=== PATIENT | male | born 1935 | race Caucasian/White ===

== ENCOUNTER 2018-01-15 11:50 | Emergency (ER) | payer MEDICARE, BC ==
[~2018-01-15] VITALS: Ht 177.8 cm; Wt 77.1 kg
[~2018-01-15 11:50] MED LIST: ASPIRIN EC81 MG PO; ATENOLOL25 MG PO; CLOBETASOL PROP15 G1 TP; HYDROCHLOROTHIA25 MG PO; HYDROCODON-ACE1 EA11 PO; OMEPRAZOLE20 MG PO; SIMVASTATIN20 MG PO
[2018-01-15] MEDS ORDERED: ELIQUIS2.5 MG PO (15:39)
[2018-01-15] MEDS ORDERED: ELIQUIS5 MG PO (15:41)
== END 2018-01-15 16:59 | disposition home or self-care (01) ==
LOC: ED 11:50
DX: I82.402 Acute embolism and thrombosis of unspecified deep veins of left lower extremity (principal); I10 Essential (primary) hypertension; F17.200 Nicotine dependence, unspecified, uncomplicated; K21.9 Gastro-esophageal reflux disease without esophagitis; Z79.899 Other long term (current) drug therapy
CPT/HCPCS: 36415; 80048; 85025; 93971; 99284

== ENCOUNTER 2020-10-04 10:45 | Inpatient (IN) | payer MEDICARE, BC ==
[~2020-10-04] VITALS: Ht 177.8 cm; Wt 83.5 kg
[~2020-10-04 10:45] MED LIST changes: -ATENOLOL25 MG PO; +ATENOLOL50 MG PO; +ELIQUIS2.5 MG PO; +ELIQUIS5 MG PO; -SIMVASTATIN20 MG PO; +SIMVASTATIN40 MG PO
--- NOTE | 2020-10-04 16:00 | NUR ---
PATIENT ARRIVED TO THE CCU ROOM 128. PATIENT STOOD AND TRANSFERED TO THE BED ON HIS OWN. PATIENT ASSESSMENT COMPELTED. PATIENT BREATH SOUNDS CLEAR. PATIENT REPORTS HAVING SOME CONGESTION AT THIS TIME. NO SOB, COUGH, OR SORE THROAT. PATIENTS COVID TEST IS NEGATIVE. PATIENT DENIES PAIN AT THIS TIME. BOWEL TONES ACTIVE. PATIENT HAS MULTIPLE LITTLE SCABS PRESENT. PATIENT IS NORMALLY INDEPENDENT AT HOME. PROVIDED PATIENT WITH WATER AND CLEAR TRAY ORDERED. WILL CONTINUE TO CLOSELY MONITOR.
--- NOTE | 2020-10-04 18:00 | NUR ---
MD FUCHS IN TO SEE PATIENT. PATIENTS SON STOPPED BY AND DROPPED OFF PATIENTS GLASSES AND HEARING AID BATTERIES. PATIENT FINISHED A CLEAR LIQUID TRAY. PATIENT DENEIS ANY OTHER NEEDS AT THIS TIME. WILL CONTINUE TO CLOSELY MONITOR.
--- NOTE | 2020-10-04 19:29 | NUR ---
pt used urinal at bedside, this SIFTING OPERATOR went to check on him and was leaning to his right side "I cant keep my balance" I held pt up while he was sitting on the bedside, asking if he was able to feel the right side of his body, pt states "Yes i feel everything, im not numb" ZECHARIAH Swift and ZECHARIAH Walls notified.
--- NOTE | 2020-10-04 19:33 | NUR ---
PT STATES HE IS FEELING CHILLED, CANT GET WARM. TYLENOL GIVEN FOR GENERAL COMFORT.
--- NOTE | 2020-10-04 20:15 | NUR ---
ASSESSMENT DONE, PT IS FEELING BETTER AFTER TYLENOL. WANTING TO TRY TO SLEEP FOR THE NIGHT.
--- NOTE | 2020-10-04 21:32 | EKG ---
[facility] [address] [facility] [place] [address] Signed Sinus tachycardia Right bundle branch block Left anterior fascicular block Bifascicular block Possible Lateral infarct , age undetermined Abnormal ECG No previous ECGs available Confirmed by SAMUEL HUTCHISON MD ([id number]) on 10/04/2020 9:32:48 PM Electronically Signed By: SAMUEL HUTCHISON MD 10/04/202131 PATIENT NAME: KATHIEFRANK KRISTAL Electrocardiogram DATE OF : 31 PHYSICIAN: SAMUEL HUTCHISON MD REPORT #: [id number] REPORT IS CONFIDENTIAL AND NOT TO BE RELEASED WITHOUT AUTHORIZATION
--- NOTE | 2020-10-04 23:15 | NUR ---
DR HUTCHISON CALLED, UPDATED REGARDING PAUSES IN RHTHYM ON CARDIA MONITOR, CURRENT VS AND PT STATUS. WILL CONT TO MONITOR.
--- NOTE | 2020-10-05 00:45 | NUR ---
PT CALLS FOR ASSISTANCE TO GET UP TO VOID. VOIDED 400ML THEN HELPED REPOSITION IN BED, ASSESSMENT DONE. PT DENIES PAIN OR FURTHER NEEDS.
--- NOTE | 2020-10-05 03:08 | NUR ---
PT RESTING, EYES CLOSED, RESP EVEN UNLABORED AND HR 60.
--- NOTE | 2020-10-05 05:20 | NUR ---
LAB IN TO DRAW, ASSESSMENT DONE, PT DENIES PAIN, DOES C/O HAVING "CHILLS".
--- NOTE | 2020-10-05 06:21 | CONS ---
[facility] [address] [place], [place] [address] Signed DATE OF CONSULTATION: 10/04/2020 CHIEF COMPLAINT: Right upper quadrant abdominal pain. 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 His son, Thiago, now runs the shop. I have known the family for many years. Frank still lives in an apartment at the shop and drives himself around town and so forth. He is known to have cholelithiasis. He developed right upper quadrant abdominal pain earlier today with a feeling a gas and then some coldness and shivering. He came to emergency room for evaluation. In the emergency room, his white count was normal, but his liver function tests were elevated along with the lactic acid. Ultrasound showed what appears to be a small stone lodged in the neck of the gallbladder. The gallbladder wall slightly thick at 3.7 mm, but the common bile duct is a little bit dilated at 10 mm. There is no pericholecystic fluid. The liver was unremarkable. I was asked to admit him as a General Surgeon on-call. I did ask our Internal Medicine Service to come see him as well, done an excellent job seeing him earlier today. He has been given Zosyn and Flagyl along with some narcotic, I think overall he is feeling much better. PAST MEDICAL HISTORY: Hypertension, hypercholesterolemia, benign hematuria, gastroesophageal reflux disease. He is hard of hearing. 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 PAST SURGICAL HISTORY: Includes prostate in hernias x2. SOCIAL HISTORY: Still smokes. He does not drink. His son is, Thiago, at [phone]. He lives alone in an apartment at the shop and still drives himself around town, he is quite independent. He goes to the [facility] in [facility] for his medical care and his pharmacy. 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 FAMILY HISTORY: Mother had a cerebral hemorrhage and for unknown reasons dad day after the , and his mom was only in her late 60s. REVIEW OF SYSTEMS: He had 10 systems reviewed. There were no new issues uncovered. ALLERGIES: Electronically Signed By: ETHAN FAUSTIN MD 10/05/20 0621 PATIENT NAME: FRANK VÁZQUEZ CONSULTATION DATE OF : 31 REPORT #: [id number] PHYSICIAN: ETHAN FAUSTIN MD PCP: NO PRIMARY CARE PHYSICIAN REPORT IS CONFIDENTIAL AND NOT TO BE RELEASED WITHOUT AUTHORIZATION [facility] [address] [place], [place] [address] Signed None. MEDICATIONS: Eliquis, , clobetasol, hydrochlorothiazide, Prilosec, and simvastatin. PHYSICAL EXAMINATION: VITAL SIGNS: Blood pressure 103/54, heart rate 80, respiratory rate 14, temperature is 99.3, and 96% on room air. He is 5 feet 10 inches, 83 kg. GENERAL: Frank is an 85-year-old gentleman, who is sitting supine, semi-recumbent in his ICU bed, watching TV. He does not appear systemically ill or toxic. LUNGS: Generally clear to auscultation bilaterally. HEART: Regular rate and rhythm without murmur. ABDOMEN: Soft, flat, and currently nontender after narcotics, although he points up underneath the right rib cage. LABORATORY DATA: His white blood count 5.4, hemoglobin 15, neutrophils 86, BUN 17, creatinine 1.25, glucose 124. COVID was negative. Urinalysis showed some bilirubin. Lactic acid was 4.2, but the repeat 2.2. Total bilirubin is 3.1, AST 160, ALT 84, his alkaline phosphatase is 99. His albumin is 4.3, lipase 37. His blood cultures are pending and a repeat echocardiogram is pending. Back in 2007, his left ventricular ejection fraction of 55% or so. RADIOGRAPHIC STUDIES: Ultrasound is reviewed and the liver is unremarkable, the gallbladder wall is a little thick at 3.7 mm, there appears to be a very small stone 1.6 mm in diameter in the neck of the gallbladder, not sure if that is a typographical error and it could be 1.6 cm. The common bile duct slightly dilated at 10 mm. There is no pericholecystic fluid. ASSESSMENT AND PLAN: Frank is an 85-year-old gentleman, who presents with at least acute cholecystitis, cholelithiasis, on Eliquis. He has been admitted, IV fluids and antibiotics. After conferring with my Internists, we are going to wait 3 days until we can do his surgery off the Eliquis. In the meantime, he will be on clear liquids, and his antibiotics and pain control. I have reviewed this with Frank and his son, Thiago, as well as Dr. Shane and his nurse. Ethan Faustin MD ALB/MODL Electronically Signed By: ETHAN FAUSTIN MD 10/05/20 0621 PATIENT NAME: FRANK VÁZQUEZ CONSULTATION DATE OF : 31 REPORT #: [id number] PHYSICIAN: ETHAN FAUSTIN MD PCP: NO PRIMARY CARE PHYSICIAN REPORT IS CONFIDENTIAL AND NOT TO BE RELEASED WITHOUT AUTHORIZATION [address] [place], [place] [address] Signed /[id number] cc: Ethan Faustin MD [facility] Copies: ETHAN FAUSTIN MD ~ Electronically Signed By: ETHAN FAUSTIN MD 10/05/20 0621 PATIENT NAME: FRANK VÁZQUEZ CONSULTATION DATE OF : 31 REPORT #: [id number] PHYSICIAN: ETHAN FAUSTIN MD PCP: NO PRIMARY CARE PHYSICIAN REPORT IS CONFIDENTIAL AND NOT TO BE RELEASED WITHOUT AUTHORIZATION
--- NOTE | 2020-10-05 06:25 | NUR ---
DR FUCHS IN TO SEE PT.
--- NOTE | 2020-10-05 07:00 | NUR ---
ECHO BEING DONE.
--- NOTE | 2020-10-05 07:30 | NUR ---
PATIENT SHIFT REPORT RECIEVED FROM PUBLIC WORKS LABORER RN. PATIENT RESTING IN BED. PATIENT GETTING AN ECHO COMPLETED AT THIS TIME. WILL CONTINUE TO CLOSELY MONITOR.
[2020-10-05] MEDS ORDERED: ELIQUIS5 MG PO (08:02)
[2020-10-05] MEDS ORDERED: PROSCAR5 MG PO (08:04)
--- NOTE | 2020-10-05 08:19 | NUR ---
PATIENT UP IN THE BED EATING BREAKFAST. PATIENT ASSESSMENT COMPELTED. PATIENT BOWEL TONES ACTIVE. PATIENT DENIES ABD PAIN. BREATH SOUNDS CLEAR. PATIENT ON RA WITH SPO2 96%. ELECTROLYTES REPLACED PER ORDERS. FRESH WATER PROVIDED. VITALS STABLE. WILL CONTINUE TO CLOSELY MONITOR.
--- NOTE | 2020-10-05 09:45 | NUR ---
Spoke with Rg. 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 He has several steps to get to his apartment. He is active and exercises for 15 min each morning, then walks 1 mile. He denies needs, plans on dc to home. States he cannot remember his Dr's name at the [facility]. He is with kahdra Vanegas and provider is Austin Wynne.
--- NOTE | 2020-10-05 10:30 | NUR ---
PATIENT ASSISTED UP TO THE CHAIR THIS AM. BEDDING CHANGED. HUTCHISON IN TO SEE PATIENT THIS AM. ALL QUESTIONS ANSWERED. PATIENT WILL STAY HERE TODAY AND WILL MONITOR PATIENTS HR. PATIENT HAD SEVERAL PAUSES THROUGHOUT THE NIGHT. SEE NEW ORDERS FOR ELECTROLYTE REPLACEMENT. PATIENT HAS THE PRISCILA LLIGHT AND IS WATCHING TV AT THIS TIME.
--- NOTE | 2020-10-05 12:25 | NUR ---
PT ALERT, ORIENTED AND SITTING IN CHAIR WATCHING TV. PT MDNTIONED HE WAS FEELING BETTER, BUT HIS STONE IS STILL PRESENT. PT THANKED ME FOR VISITING, GAVE BLESSING. WILL FOLLOW NEEDED
--- NOTE | 2020-10-05 12:30 | NUR ---
PATIENT STOOD AT THE CHAIR TO USE THE URINAL. PATIENT SITTING BACK DOWN AT THIS TIME. PATIENTS VITALS DONE. PATIENT DENIES PAIN. PATIENT DENIES WANTING TO EAT AT THIS TIME. FRESH WATER PROVIDED. WARM BLANKET PROVIDED. WILL CONTINUE TO CLOSELY MONTIOR.
--- NOTE | 2020-10-05 13:00 | NUR ---
PATIENT SLEEPING IN THE CHAIR. WILL ALLOW PATIENT TO REST AT THIS TIME. CALL LIGHT IN REACH. WILL CONTINUE TO CLOSELY MONTIOR.
--- NOTE | 2020-10-05 13:39 | NUR ---
PT UP STANDING AT BEDSIDE, INCONTINENT OF URINE AND STOOL. IN TO SEE HIM. PT IS CONFUSED. STATES HE WOULD LIKE TO GO TO THE BED OVER AND OVER WHILE PUSHING THROUGH TO THE CHAIR AND CALLING IT THE BED. PT ASKS SAME QUESTIONS OVER AND OVER. REORIENTED. BLOOD SUGAR 116. BEFAST EXAM NEGATIVE FOR ANY DEFICITS. VITALS WITHIN NORMAL LIMITS EXCEPT TEMP OF 100.0. PT COMPLAINS OF SEVERE HEADACHE. MEDICATED WITH [address] HUTCHISON NOTIFIED. NO NEW ORDERS. WILL CONTINUE TO MONITOR.
--- NOTE | 2020-10-05 15:00 | NUR ---
PATIENT FEELING BETTER AT THSI TIME FROM FEVER INCIDENT EARLIER. PATIENT IS ALERT AND ORIENTED. PATIENT CONTINUES TO COMPLAIN OF A LITTLE HEADACHE. PATIENTS VITALS STABLE. TEMP IS DOWN TO 99.8. PATIENT HAS KICKED HIS BLANKETS OFF AND NO LONGER SHAKING AT THIS TIME. WILL CONTINUE TO CLOSELY MONITOR.
--- NOTE | 2020-10-05 17:00 | NUR ---
PATIENT SITTING IN BED. PATIENTS TEMP HAS RETURNED TO NORMAL. PATIENT REPORTS THAT HE FEELS BETTER AT THIS TIME. NO OTHER QUESTIONS AT THIS TIME. BED ALARM ON FOR PATIENTS SAFETY. WILL CONTINUE TO CLOSELY MONTIOR.
--- NOTE | 2020-10-05 18:30 | NUR ---
PATIENT UP TO THE BEDSIDE TO USE THE URINAL. PATIENT TOLERATED WELL. PATIENT HAS HAD NO EPISODES OF PAUSES TODAY. PATIENT HAD AN APPLE JUICE CLEAR ENSURE AND BROTH FOR DINNER ND TOLERATED WELL. PATIENT HAS REMAINED ALERT AND ORIENTED SINCE PRIOR CONFUSION EPISODE WITH FEVER EARLIER TODAY. WILL CONTINUE TO CLOSELY MONITOR.
--- NOTE | 2020-10-05 22:39 | NUR ---
PT CHILLED AND SHAKING. WARM BLANKETS GIVEN. ORAL TEMP CHECKED IS 98.3.
--- NOTE | 2020-10-06 00:20 | NUR ---
PT UP TO VOID, ASSESSMENT DONE. STATES HE IS NO LONGER FEELING CHILLED, NO LONGER SHAKING. NO REQUESTS. DENIES PAIN.
--- NOTE | 2020-10-06 02:15 | NUR ---
PT RESTING WITH EYES CLOSED, RESP EVEN AND UNLABORED. HR 69 SINUS RHYTHM.
--- NOTE | 2020-10-06 04:33 | NUR ---
PT WAS INC OF STOOL, DOWN TO TAKE A SHOWER IN 126, PT TOLERATED WELL. BACK TO HIS ROOM TO TRY TO GO BACK TO SLEEP. DENIES PAIN/NAUSEA.
--- NOTE | 2020-10-06 06:30 | NUR ---
PT HAS BEEN RESTING IN BED WITH RESP EVEN AND UNLABORED SINCE SHOWER. NO PAUSES NOTED IN HR THROUGH THE NIGHT, LAST NOTED WAS AROUND 2100. HAS CONTINUED TO DENY PAIN/NAUSEA.
--- NOTE | 2020-10-06 07:30 | NUR ---
PATIENT SHIFT REPORT RECIEVED FROM SPIDER ASSEMBLER RN. PATIENT RESTING IN BED. CALL LIGHT IN [facility]. PATIENT STANDS AT THE BEDSIDE ON HIS OWN TO USE URINAL. WILL CONTINUE TO CLOSELY MONITOR.
--- NOTE | 2020-10-06 09:00 | NUR ---
PATIENT UP TO THE CHAIR WITH THIS RN. PATIENT IS A STAND-BY TO MANAGE CORDS. PATIENT DENEIS ABD PAIN. BOWEL TONES ACTIVE. BREATH SOUNDS CLEAR. SPO2 100% ON RA. VITALS STABLE. PATIENT APPEARS TO BE LESS JAUNDICED TODAY THAN PRIOR DAY. MD FUCHS IN TO SEE PATIENT. WILL CONTINUE TO CLOSELY MONITOR.
--- NOTE | 2020-10-06 11:00 | NUR ---
PATIENT REMAINS UP IN THE CHAIR. PATIENT HAD AN APPLE JUICE ENSURE THIS AM, CHICKEN BROTH, AND SOME COFFEE AND TOLERATED WELL. MD FUCHS PLANS TO DO SURGERY TOMORROW AM. WILL REPEAT LABS TONIGHT TO MONITOR PLATLETS. SEE NEW ORDERS. MD PALACIOS IN TO SEE PATIENT. WILL CONTINUE TO CHRISTOPH WATTS.
--- NOTE | 2020-10-06 12:29 | NUR ---
PATIENT SITTING IN THE CHAIR. NEWS PAPER PROVIDED. PATIENTS KIRIT AT THE BEDSIDE. PATIENTS SON UPDATED ON PLAN OF CARE. WILL CONTINEU TO CLOSELY MONITOR.
--- NOTE | 2020-10-06 13:29 | NUR ---
CLEAR LIQUID TRAY AT THE BEDSIDE. PROVIDED PATIENT INFORMATION AND EDUCATION ABOUT GALLBLADDER SURGERY. PATIENT REPORTS NO QUESTIONS AFTER READING PACKET, WILL CONTINUE TO CLOSELY MONTIOR.
--- NOTE | 2020-10-06 15:30 | NUR ---
PATIENT SLEEPING IN THE CHAIR AT THIS TIME. CALL LIGHT IN REACH. URINAL ON BEDSIDE TABLE FOR EASY ACCESS. PATIENT ABLE TO STAND ON HIS OWN AND USE URINAL NEEDED. FRESH WATER AT THE BEDSIDE. WILL ALLOW PATIENT TO REST AT THSI TIME.
--- NOTE | 2020-10-06 17:46 | NUR ---
PATIENT SITTING IN CHAIR AND DENIES ANY NEEDS AT THIS TIME. IVF CONTINUE. PT DENIES WANTING TO EAT OR DRINK ANYTHING THIS EVENING. PLAN OF CARE REVIEWED WITH PATIENT AND PLAN TO HIM TO RETURN TO HIS ROOM IN CCU AFTER HIS SCHEDULED SURGERY TOMORROW. CALL LIGHT WITHIN REACH. URINE OUTPUT HAS IMPROVED AND COLOR OF URINE IS NOW STRAW YELLOW VS CONCENTRATED BILIRUBIN IT WAS EARLIER.
--- NOTE | 2020-10-06 18:00 | NUR ---
PATIENT SITTING UP IN THE CHAIR. FRESH WATER PROVIDED. MIXED BASILIO ENSURE AT THE BEDSIDE. PATIENT DENEID JELLO AND BROTH THIS EVENING. VITALS STABLE. LAB IN FOR BLOOD DRAW. WILL CONTINUE TO CLOSELY MONITOR.
--- NOTE | 2020-10-06 18:40 | NUR ---
MD PALACIOS IN UNIT. DISCUSSED RECENT HEART PAUSES. PER MD PALACIOS NOTIFY MD FUCHS AND SALES AND SERVICE OFFICER THAT WILL BE DOING PATIENTS PROCEDURE TOMORROW. AWAITING LAB RESULTS THEN WILL CALL MD FUCHS. PATIENT HAD SOME BRIEF DIZZINESS WITH PAUSE. PATIENTS BP 167/76. NO OTHER ISSUES AT THIS TIME. WILL CONTINUE TO CLOSELY MONITOR.
--- NOTE | 2020-10-06 19:40 | NUR ---
DORA HAMMER NOTIFIED OF HEART PAUSES PER MD PALACIOS. UPDATED AND ALL QUESTIONS ANSWERED. CALLED AND UPDATED MD FUCHS OF RECENT PAUSE EPISODES AND PLATLET RESULTS OF 91. PER MD FUCHS NO NEED TO TRANSFUSE PLATLETES TONIGHT. NO PLATLETES ON STAND-BY. MD AWARE. MD FUCHS OKAY WITH PAUSE EPISODES. NO NEW ORDERS. COLOR WEIGHER STAFF UPDATED.
--- NOTE | 2020-10-06 23:00 | NUR ---
CALL TO DR PALACIOS TO UPDATE REGARDING INCREASED BLOOD PRESSURES, ORDERS GIVEN FOR BP MEDS.
--- NOTE | 2020-10-06 23:19 | NUR ---
PT SLEEPING, AWAKENS TO TAKE LISINOPRIL, MEDICATION EXPLAINED TO PT, NO QUESTIONS. BACK TO SLEEP.
--- NOTE | 2020-10-07 02:00 | NUR ---
PT HAS BEEN RESING, HR 60'S, BPS HAVE COME DOWN. NO PAUSES NOTED SO FAR THIS SHIFT.
--- NOTE | 2020-10-07 04:10 | NUR ---
UP TO VOID, ASSESSMENT DONE, NO CHANGES. DENIES PAIN/NEEDS.
--- NOTE | 2020-10-07 06:22 | NUR ---
PT RESTING IN BED, RESP EVEN UNLABORED. HR 60'S.
--- NOTE | 2020-10-07 07:30 | NUR ---
REPORT RECIEVED. PATIENT IS RESTING IN BED AFTER AMBULATING TO . DR. FUCHS UPDATED VIA PHONE REGARDING PATIENT LABS. MAG 2 GRAMS ORDERED.
--- NOTE | 2020-10-07 08:00 | NUR ---
ASSESSMENT DONE. MAG CHARLES. IV SITE STARTED TO RIGHT WRIST. SL TO JEOVANNY LOUIS'D. REDRESSED IV TO LEFT HAND. PLAN TO GO TO OR AT APPROX 0900 TODAY.
--- NOTE | 2020-10-07 08:20 | NUR ---
CLORAHEXADINE BATH GIVEN.
--- NOTE | 2020-10-07 08:30 | NUR ---
DENIES PAIN OR NAUSEA. PATIENT IS AWARE OF POC.
--- NOTE | 2020-10-07 09:00 | NUR ---
TO OR VIA STRETCHER. LR TKO HANGING, ZOSYN INFUSING.
--- NOTE | 2020-10-07 10:58 | NUR ---
10/07/20 1058 Tami Murcia 1050 PATIENT ARRIVES CCU 128 RESTING WITH EYES CLOSED. OPENS EYES WITH VERBAL STIMULI, THEN BACK TO SLEEP WITHOUT STIMULATION. 1055 PATIENT RESTING WITH EYES CLOSED. MOVING ALL EXTREMITIES. RESP EVEN AND UNLABORED, PATIENT DEEP BREATHING AND COUGHING WITHOUT STIMUALATION. MASK CONTINUED AT 6 LITERS.
--- NOTE | 2020-10-07 11:15 | NUR ---
RETURNED TO CCU, REPORT RECIEVED FROM IMMUNOLOGY TEACHER.
--- NOTE | 2020-10-07 11:34 | NUR ---
O2 AT 2 L APPLIED O2 SATS DOWN TO 88. WILL CONTINUE TO MONITOR.
--- NOTE | 2020-10-07 12:20 | NUR ---
REPOSITIONED, C/O INCREASED POST-OP PAIN 06/04.
--- NOTE | 2020-10-07 12:25 | NUR ---
OXYCODONE 5 MG PO GIVEN FOR PAIN. O2 DECREASED TO 1 L NC.
--- NOTE | 2020-10-07 12:30 | NUR ---
REFUSED CLEAR LIQUID TRAY. HAS BEEN TAKING SIPS OF WATER.
--- NOTE | 2020-10-07 14:20 | NUR ---
MORPHINE 2 MG IV GIVEN FOR PAIN, RATE 06/04. OXYCODONE GIVEN EARLIER.
--- NOTE | 2020-10-07 14:40 | NUR ---
STATES HE FEELS BETTER AFTER BEING MEDICATED WITH MORPHINE.
--- NOTE | 2020-10-07 15:15 | NUR ---
SLEEPING, O2 TO RA AT 1445.
--- NOTE | 2020-10-07 15:45 | NUR ---
REPORT TO NEISHA APPLE WHO WILL TAKE OVER NURSING CARE.
--- NOTE | 2020-10-07 15:55 | NUR ---
Patient alert and oriented x4, respirations even and non labored. Patient's oxygen saturation is 94% on room air. Patient reports improved abdominal pain; 5/10 pain level. Patient denies needs. Personal supplies and call light within reach.
--- NOTE | 2020-10-07 17:02 | NUR ---
Patient resting in bed, alert and oriented x4. Patient reports tolerable abdominal pain; 5/10. Patient declined pain medication at this time. Vital signs are stable. Right upper portion of abdominal dressing has sarosanguineous drainge noted to dressing. Bishop intact to RLQ, patent with scant sarosang drainage in bulb. Active bowel tones x4. Pt brought clear liquid tray for dinner. No needs at this time.
--- NOTE | 2020-10-07 18:09 | NUR ---
CALLED AND TALKED WITH DR. FUCHS REGARDING PLAN OF CARE AND FURTHER TRANSFER TO A HIGHER LEVEL OF CARE THAT CAN PERFORM AN ERCP FOR HIM. AT THIS POINT, NO TRANSFER PLANS MADE BUT DR. FUCHS WILL RESUME COMMUNICATIONS WITH OTHER PHYSICIANS IN THE AM. PATIENT TO REMAIN ON CLEAR LIQUIDS. CONTINUE TO MONITOR.
--- NOTE | 2020-10-07 18:28 | NUR ---
Oxycodone 5mg po admin for reports of 6/10 abd pain.
--- NOTE | 2020-10-07 19:30 | NUR ---
Report received from ZECHARIAH Medellin. Orders acknowledged. Patient sitting up in bed with eyes closed, respirations even and unlabored. SpO2 of 95% on RA. Patient rouses easily to voice. Patient denies pain. Lap sites are C/D/I. TASH drain in place in RLQ with small amount of sanginous fluid noted in TASH drain, will empty soon. Towel in place over TASH drain for oozing serosanguinous fluid noted on dressing, has not continued to ooze since earlier in shift. D5LR infusing at 100 mls/hr. Ice pack in place over abdomen. Patient denies needs at this time, call light within reach.
--- NOTE | 2020-10-07 19:50 | NUR ---
Patient sitting up in bed with eyes closed, respirations even and unlabored. Rouses easily to voice. Vital signs taken, assessment complete. PM medication given (see DEC). Patient denies pain, reports the pain medication at 1830 worked well to relieve his pain. Lap sites are C/D/I. TASH drain in RLQ has sanginous fluid noted. Towel in place over TASH drain due to serosanginous drainage from earlier in shift, no new drainage noted. Bowel tones are active, patient denies pain or tenderness to the abdomen. Patient tolerating clear liquids. D5LR infusing at 100 mls/hr, IV abx finished infusing. Patient denies further needs, call light within reach.
--- NOTE | 2020-10-07 20:17 | NUR ---
Patient sleeping in bed in high fowlers position, respirations even and unlabored. D5LR infusing at 100 mls/hr. Call light within reach.
--- NOTE | 2020-10-07 22:30 | NUR ---
Patient sleeping, respirations even and unlabored. Rouses easily to voice. IV abx hung and infusing. Patient denies pain. Falls asleep easily, call light within reach.
--- NOTE | 2020-10-07 23:10 | NUR ---
Patient uses urinal while standing at edge of bed, steady on feet. 200 mls of urine noted. New chux pad placed on bed. New gauze placed around TASH drain due to serosanginous drainage. TASH drain pinned to patient's gown. Lap sites remain C/D/I. Patient denies pain. SpO2 of 95% on RA. BP cuff removed, BPs have remained in the 130's systolic. SCDs in place, patient denies need for anything further. Call light within reach.
--- NOTE | 2020-10-08 01:15 | NUR ---
IV flagyl finished infusing. Patient sleeping, respirations even and unlabored. Patient rouses to movement in room, stands up at edge of bed to use urinal. 275 mls of urine noted. Patient steady on feet, returns to bed independently. IV zosyn continues to infuse. Patient denies pain. Gauze around TASH site has serosanginous drainage, approximately the size of a quarter. Patient denies needs at this time, call light within reach.
--- NOTE | 2020-10-08 02:42 | NUR ---
IV pump beeping, this RN in room. Patient sleeping, respirations even and unlabored. Patient rouses with movement in room. Gauze around TASH drain assessed while patient awake - serosanguinous fluid noted; as in prior assessment. Patient denies pain or further needs. Call light within reach.
--- NOTE | 2020-10-08 04:36 | NUR ---
Patient sleeping in bed, respirations even and unlabored. IVF infusing at 100 mls/hr. Call light within reach.
--- NOTE | 2020-10-08 05:00 | NUR ---
Lab in room to draw blood
--- NOTE | 2020-10-08 06:00 | NUR ---
Patient sitting up in bed, awake and alert. IV abx hung and infusing. Vital signs taken, assessment complete. Patient reports pain of 6/10, which is decreased from previous assessment. D5LR infusing at 100 mls/hr. Denies needs, call light within reach.
--- NOTE | 2020-10-08 07:50 | NUR ---
Spoke with Larry. States he is somewhat sore following surgery but, does feel better. Awaiting to hear if he will transfer and to where for ERCP. Dr. Faustin in and updated pt he is attempting to find placement for ERCP. He was unable to transfer him yesterday.
--- NOTE | 2020-10-08 07:56 | OR ---
[facility] [address], [place] [address] Signed DATE OF OPERATION: 10/07/2020 SURGEON: Ethan Faustin MD PREOPERATIVE DIAGNOSIS: Acute cholecystitis with cholelithiasis. POSTOPERATIVE DIAGNOSIS: Acute cholecystitis with choledocholithiasis. PROCEDURES: 1. Laparoscopic cholecystectomy with intraoperative cholangiogram. 2. Placement of subhepatic drain. ESTIMATED BLOOD LOSS: 100 mL. FINDINGS: There was a single 5-7 mm stone in the distal common bile duct. The contrast did flow around the stone and out into the duodenum. He also had the 1.6 cm stone in the neck of his gallbladder. He had acute on chronic inflammatory changes. He has been on Eliquis and did have just a little bleeding on along the lateral edge of the gallbladder fossa somewhat near the anterior edge of the liver. That had been cauterized and then covered with Blu followed by Surgicel. 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 His son now runs the shop. Frank still stays there in his apartment. He is very active helping around the shop and taking a walk every day. 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 He had developed abdominal pain with gas and was feeling cold and chills. He came to the emergency room for evaluation. His white count was normal, but his bilirubin and liver function tests were elevated with a slight elevation of lactic acid as well. Albumin is good at 4.3. Lipase also good at 37. He had blood cultures sent and are still pending. He has had a repeat echocardiogram done as well because of heart murmur, which has essentially been clinically insignificant. He had an ultrasound of the right upper quadrant performed and of course, the liver was unremarkable. There was a 1.6 cm stone in the neck of his gallbladder. The gallbladder wall was slightly thickened at 3.7 mm. The common bile duct was a little dilated at 10 mm. There was no pericholecystic fluid. I have been asked to admit him as a general surgeon on-call. We placed him on Zosyn and Flagyl. We Electronically Signed By: ETHAN FAUSTIN MD 10/08/20 0756 PATIENT NAME: FRANK VÁZQUEZ OPERATIVE REPORT DATE OF : 31 REPORT #: [id number] PHYSICIAN: ETHAN FAUSTIN MD PCP: NO PRIMARY CARE PHYSICIAN REPORT IS CONFIDENTIAL AND NOT TO BE RELEASED WITHOUT AUTHORIZATION [facility] [address] [place] [id number] Signed had our Internal Medicine Service follow along as well. They recommended we wait three days off Eliquis before doing his gallbladder surgery. He has had a rise in his liver function test, but they were now in the decline. His white count and his platelet count had fallen as well. We were concerned that was all consistent with cholangitis. However, he has not had any pain since he has been in the hospital. We did leave him on the Zosyn and Flagyl. I have reviewed the above findings with Frank and his son Fady. We have discussed the location and function of the gallbladder. We discussed the expected intraop and postop course. There is risk of surgery including, but not limited to bleeding, infection, scarring, change in contour of the skin, damage to bowel, damage to main bile duct, incisional hernias and other unforeseen comorbidities. We also discussed the fact that patients in this situation have a 3%-7% chance of having a stone in their common bile duct. Those patients undergo ERCP. That was not available at our hospital. They are aware that should that proved to be true, he would need transferred or taken to our [facility]. He had expressed understanding and wished to proceed. PROCEDURE NOTE: Frank was taken into our operating room and placed in the supine position under general endotracheal tube anesthesia. He was already on preoperative antibiotics along with his subcutaneous Lovenox. SCDs were utilized. He was prepped and draped in usual sterile fashion. All trocars were placed in usual positions under direct visualization of camera without difficulty. The gallbladder was grasped and elevated in the right upper quadrant. He had acute on chronic inflammatory changes. We had to take the omentum down and off the gallbladder bluntly and with judicious cautery. We made our way down to the triangle of GAVI, which we dissected out. We had placed two clips on the cystic artery and it was divided. The intraoperative cholangiocatheter was then inserted into the cystic duct stump. The intraoperative cholangiogram was performed. The contrast flowed readily, but we could see the common bile duct was still dilated and it looks like he has a 5-7 mm stone in his distal common bile duct. The contrast did go around into the duodenum. Consequently, we flushed it with some additional saline and some additional contrast for additional radiographic views. The stone did not move. After this the cystic duct stump was secured with a PDS Endoloop and 2 clips were placed across the cystic duct stump to cherry its location. We did have a little bleeding from the gallbladder edge, somewhat laterally and somewhat anteriorly. We had slowly but surely taken the gallbladder off with the help of the cautery and placed into an EndoCatch bag. We turned up to cautery and we cauterized that area and it seemed to work out quite nicely. We went ahead and placed Blu over that area and the rest of the gallbladder fossa. We then placed our #7 flat Brian drain to pass the cystic duct stump and out laterally through the right most lateral 5 mm right subcostal trocar site. It was held in place with an interrupted two-0 nylon suture. We then placed Surgicel over the gallbladder fossa area along the edge of the gallbladder fossa. It looked to us like there was good hemostasis during this time. We then used our laparoscopic Electronically Signed By: ETHAN FAUSTIN MD 10/08/20 0756 PATIENT NAME: FRANK VÁZQUEZ OPERATIVE REPORT DATE OF : 31 REPORT #: [id number] PHYSICIAN: ETHAN FAUSTIN MD PCP: NO PRIMARY CARE PHYSICIAN REPORT IS CONFIDENTIAL AND NOT TO BE RELEASED WITHOUT AUTHORIZATION [facility] [address] [place] [address] Signed suturing device to pass 0 Vicryl suture on either side of the fascia of the subxiphoid trocar site. This was tied down to close this fascia primarily. The gas was allowed to escape and all the trocars were removed along with the gallbladder. The gallbladder was opened on the back table by our circulating nurse for photodocumentation. We then closed the fascia of the supraumbilical trocar site with interrupted 0-Vicryl sutures. Local anesthetic was injected in all trocar sites. Each trocar site was irrigated and suctioned out until clear. We closed the dermis of each trocar site with interrupted 3-0 subcuticular Monocryl sutures. We closed the skin edges of the supraumbilical trocar site with a running fast-absorbing 5-0 plain gut suture. Dry gauze and tape were applied to all incisions. Frank was then awakened from his anesthesia, extubated in the OR, and taken to recovery room in stable condition. Ethan Faustin MD ALB/MODL /[id number] cc: Ethan Faustin MD [place], [place] Copies: ETHAN FAUSTIN MD ~ Electronically Signed By: ETHAN FAUSTIN MD 10/08/20 0756 PATIENT NAME: FRANK VÁZQUEZ OPERATIVE REPORT DATE OF : 31 REPORT #: [id number] PHYSICIAN: ETHAN FAUSTIN MD PCP: NO PRIMARY CARE PHYSICIAN REPORT IS CONFIDENTIAL AND NOT TO BE RELEASED WITHOUT AUTHORIZATION
--- NOTE | 2020-10-08 08:27 | NUR ---
IN ROOM WITH DR FUCHS AND [employer]I [employer]LASTIC KNITTER. PT STOOD AT BEDSIDE TO USE URINAL, WAS A LITTLE UNSTEADY BUT WAS ABLE TO CATCH BALANCE EVENTUALLY. DRAIN SITE LEAKING AROUND DRAIN. OTHER SITES CDI.
--- NOTE | 2020-10-08 09:15 | NUR ---
REMOVED IV IN LEFT HAND FOR LEAKING. REMOVED CLEAR TRAY FOR NPO STATUS. SPOKE WITH PT ABOUT HIM POSSIBLY GOING TO [place] AT SOME TIME FOR ERCP. ANSWERED QUESTIONS REGARDING WHAT THAT PROCEDURE ENTAILS. TALKED ABOUT BOOKS. PT DENIES NEEDING PAIN MEDICATION.
--- NOTE | 2020-10-08 10:40 | NUR ---
CHANGED DRESSING ON TASH SITE. INCISION WNL, NO REDNESS NOTED, STITCHES INTACT. ATTEMPTED TO REMOVED UPPER LAP SITE DRESSING BUT STILL OOZING SMALL AMT BLOOD, LEFT IN PLACE. PT TOLERATED WELL. ASKED FOR WATER, REMINDED OF NPO STATUS AND GIVEN MOUTH SWABS AND CHAPSTICK.
--- NOTE | 2020-10-08 11:34 | NUR ---
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 PT DENIES CONCERNS. VS STABLE. AFEBRILE.
--- NOTE | 2020-10-08 11:53 | NUR ---
ADMINISTERED SCHEDULED LOVENOX. PT TOELRATED WELL.
--- NOTE | 2020-10-08 13:44 | NUR ---
PT RESTING WITH EYES CLOSED. CALL LIGHT IN REACH.
--- NOTE | 2020-10-08 14:51 | NUR ---
PT UP TO BED AFTER STANDING AND STRETCHING FOR A FEW MINUTES. STATES HE IS FEELING A LITTLE STIFF AND STORE.
--- NOTE | 2020-10-08 16:21 | NUR ---
SPOKE WITH MARITZA AT DR MCMAHAN'S OFFICE IN [place] REGARDING TOMORROW'S APPOINTMENT AND TIME. WROTE DOWN ALL INSTRUCTIONS AND CALLED DR FUCHS'S PHONE AND LEFT MESSAGE. PT UP TO RESTROOM.
[2020-10-08] MEDS ORDERED: AUGMENTIN 500-1 EACH PO (17:11)
--- NOTE | 2020-10-09 06:51 | DS ---
[facility] [address], [place] [address] Signed ADMISSION DATE: 10/04/2020 DISCHARGE DATE: 10/08/2020 FINAL DIAGNOSIS: Acute cholecystitis with choledocholithiasis. PROCEDURE: 1. Laparoscopic cholecystectomy with intraoperative cholangiogram. 2. Drain placement. HISTORY OF PRESENT ILLNESS: Frank is an 85-year-old gentleman who is actually quite healthy and very active. He lives alone, walks every day and still drives around town. He is very close with the son Thiago here in town who helps him out as well. He was having abdominal pain, gas and feeling very cold and shivering. He came to our local emergency room for evaluation. He was not ill or toxic, but he had an elevated liver function test. His white blood cell count was normal. Initially, the total bilirubin was 3.2 with an AST 160, ALT 184, alkaline phosphatase 99, lipase 37 with an albumin of 4.3. Lactic acid was initially high at 4.2. He had an ultrasound done in the liver, which was unremarkable but there was a 1.6 cm stone in the neck of his gallbladder. The gallbladder wall was a little thick at 3.7 mm. The common bile duct was slightly dilated at 10 mm, but no pericholecystic fluid. I was asked to admit him as a general surgeon on-call. HOSPITAL COURSE: Frank was admitted as above on his Zosyn and Flagyl. We had to wait 2 full days off the Eliquis before we could do his gallbladder surgery. Initially, the liver function tests got worse but than improved. The same thing with his white count and his platelet count. We took him to surgery yesterday and he underwent a laparoscopic cholecystectomy with intraoperative cholangiogram. It looks like he has a 5 maybe a 7 mm stone stuck in his distal common bile duct. We did get a little contrast to go around it, so we flushed it through the best we could with some saline and some additional contrast. The filling defect was not compressible and appeared to be a stone. We placed a subhepatic drain and he was brought back to the ICU. He has continued to improve including this morning. He looks and feels much better and his jaundice is already improving. We have been calling since yesterday to make arrangements for him to have an ERCP here in the next few days. With the COVID pandemic, it has been difficult. Eventually, [facility] in [place], [place] has been able to help us. Dr. Nino Jameson has accepted him for an outpatient ERCP. His son, Thiago is going to be able to drive him up tomorrow morning. In the meantime, I have here with Frank. He is doing fine. Again, his jaundice is resolving. He looks and feels much better. He has taken his clear liquids fine and his abdominal exam is completely benign. He does have a Electronically Signed By: ETHAN FUCHS MD 10/09/20 0651 PATIENT NAME: FRANK VÁZQUEZ DISCHARGE SUMMARY DATE OF : 31 REPORT #: [id number] PHYSICIAN: ETHAN FUCHS MD PCP: NO PRIMARY CARE PHYSICIAN REPORT IS CONFIDENTIAL AND NOT TO BE RELEASED WITHOUT AUTHORIZATION [facility] [address], [place] [address] Signed little bit of serosanguineous fluid out the drain. DISCHARGE PLANS AND MEDICATIONS: Frank is going to be discharged to home with just a few more days of the Augmentin. We are going to leave his drain in place. He has not been using any narcotics and only Tylenol for the pain. Even then he has not been using much. We are going to let him go home this evening with his son. Tomorrow morning, they will take him up to [facility] in [place], [place]. We have already made all those phone calls and made those arrangements and faxed up those records. They are hoping to do his ERCP around 04:15 or 04:30 in the afternoon. He will be discharged with his son, Thiago, and we will see him in followup about a week afterwards here in [place], [place]. We will remove the drain at that time. I have reviewed this with Frank and his son, Thiago. They have expressed understanding and agreed the above plan. Ethan Fuchs MD ALB/MODL /[id number] cc: MD Ethan Cruz MD Patient chart Nino Jameson MD Copies: JONATAN GARRISON MD, ANDREW L MD ~ Electronically Signed By: ETHAN FUCHS MD 10/09/20 0651 PATIENT NAME: FRANK VÁZQUEZ DISCHARGE SUMMARY DATE OF : 31 REPORT #: [id number] PHYSICIAN: ETHAN FUCHS MD PCP: NO PRIMARY CARE PHYSICIAN REPORT IS CONFIDENTIAL AND NOT TO BE RELEASED WITHOUT AUTHORIZATION
== END 2020-10-08 18:05 | disposition home or self-care (01) | DRG 854 ==
LOC: ED 10:45 → CCU 14:36
PROVIDERS: ADMIT Colon & Rectal Surgery; ATTEND Colon & Rectal Surgery
PROC: BF101ZZ Fluoroscopy of Bile Ducts using Low Osmolar Contrast (ICD-10-PCS; 2020-10-07)
PROC: 0FT44ZZ Resection of Gallbladder, Percutaneous Endoscopic Approach (ICD-10-PCS; principal; 2020-10-07 09:00)
DX: A41.9 Sepsis, unspecified organism (principal); K80.66 Calculus of gallbladder and bile duct with acute and chronic cholecystitis without obstruction; R17 Unspecified jaundice; D68.59 Other primary thrombophilia; R65.20 Severe sepsis without septic shock; Z20.828 Contact with and (suspected) exposure to other viral communicable diseases; I49.8 Other specified cardiac arrhythmias; I10 Essential (primary) hypertension; N40.0 Benign prostatic hyperplasia without lower urinary tract symptoms; K21.9 Gastro-esophageal reflux disease without esophagitis; E78.5 Hyperlipidemia, unspecified; H91.90 Unspecified hearing loss, unspecified ear; F17.210 Nicotine dependence, cigarettes, uncomplicated; E87.6 Hypokalemia; E83.39 Other disorders of phosphorus metabolism; E83.42 Hypomagnesemia; Z86.718 Personal history of other venous thrombosis and embolism; Z79.899 Other long term (current) drug therapy; Z79.01 Long term (current) use of anticoagulants
CPT/HCPCS: 00790; 36415; 74300; 76705; 80053; 81001; 83605; 83690; 83735; 84100; 85025; 86850; 86900; 86901; 93005; 93010; 93306; 96374; 99285-25; C9113; C9803; J0131; J0330; J1100; J1610; J1650; J1885; J2001; J2270; J2405; J2543; J2704; J3010; J3475; J3480; J7030; J7060; J7120; J7121; Q9967; U0003

== ENCOUNTER 2020-10-17 05:07 | Emergency (ER) | payer MEDICARE, BC ==
[~2020-10-17] VITALS: Ht 177.8 cm; Wt 79.4 kg
[~2020-10-17 05:07] MED LIST changes: +AUGMENTIN 500-1 EACH PO; +PROSCAR5 MG PO
--- OUTSIDE RECORDS SUMMARY | 2020-10-17 05:10 | XMS ---
PreManage Notification: FRANK VÁZQUEZ Security Dietetics Director Events No recent Security Events currently on file CRITERIA MET - History of Sepsis Dx - [facility] - 2 Visits in 30 Days CARE PROVIDERS There are no care providers on record at this time. Allie has no Care Guidelines for this patient. [facility] VIS[facility] COUNT (12 MO.) [facility] T[facility] 2 NOTE: Visits indicate total known visits. ED/C VISIT TRACKING (12 MO.) 10/17/2020 05:[address] [facility] [place] TYPE: Emergency COMPLAINT: - RT SHOULDER PAIN 10/04/2020 10:47 [facility] [place] TYPE: Emergency COMPLAINT: - ABD PAIN INPATIENT VISIT TRACKING (12 MO.) 10/04/2020 14:36 [facility] [place] TYPE: Critical Care COMPLAINT: - CHOLANGITIS DIAGNOSES: - Contact with and (suspected) exposure to other viral communicable diseases - Other director long term care (current) drug therapy - Benign prostatic hyperplasia without lower urinary tract symptoms - Unspecified jaundice - Other disorders of phosphorus metabolism - care home (current) use of anticoagulants - Severe sepsis without septic shock - Hypokalemia - Epigastric pain - Other primary thrombophilia - Nicotine dependence, cigarettes, uncomplicated - Hyperlipidemia, unspecified - Other specified cardiac arrhythmias - Gastro-esophageal reflux disease without esophagitis - Essential (primary) hypertension - Calculus of gallbladder and bile duct with acute and chronic cholecystitis without obstruction - Unspecified hearing loss, unspecified ear - Personal history of other venous thrombosis and embolism - Hypomagnesemia - Sepsis, unspecified organism [email or web address]
[2020-10-17] MEDS ORDERED: ELIQUIS5 MG PO (05:23)
== END 2020-10-17 07:40 | disposition home or self-care (01) ==
LOC: ED 05:07
DX: M54.2 Cervicalgia (principal); I10 Essential (primary) hypertension; F17.200 Nicotine dependence, unspecified, uncomplicated; Z88.8 Allergy status to other drugs, medicaments and biological substances; Z79.899 Other long term (current) drug therapy
CPT/HCPCS: 80053; 83690; 85025; 96374; 96375; 99283-25; J1170; J1885

== ENCOUNTER 2021-03-04 15:32 | Observation (INO) | payer OTHER ==
[~2021-03-04] VITALS: Ht 177.8 cm; Wt 81.3 kg
--- OUTSIDE RECORDS SUMMARY | 2021-03-04 15:34 | XMS ---
PreManage Notification: FRANK VÁZQUEZ Security Verification Specialist Events No recent Security Events currently on file CRITERIA MET - History of Sepsis Dx CARE PROVIDERS NELLY Young [employer] Producer: Clinical 10/18/2020-Current [facility] \F\ [facility] PHONE: [phone] Allie has no Care Guidelines for this patient. Care History Medical/Surgical 10/18/2020 [facility] \T\middot;\T\nbsp; PATIENT IS A -RECEIVES SERVICES THROUGH [facility] IN [place]. \T\middot;\T\nbsp; Location: [address], [place] [address]- E.D. VISIT COUNT (12 MO.) 3 [facility] TOTAL 3 NOTE: Visits indicate total known visits. ED/UCC VISIT TRACKING (12 MO.) 03/04/2021 15:33 [facility] [place] TYPE: Emergency COMPLAINT: - BLOOD BOWL MOVEMENT 10/17/2020 05:07 [facility] [place] TYPE: Emergency COMPLAINT: - RT SHOULDER PAIN NON INJURY DIAGNOSES: - Allergy status to other drugs, medicaments and biological substances - Allergy status to other drugs, medicaments and biological substances - Essential (primary) hypertension - Other director long term care (current) drug therapy - Cervicalgia - Nicotine dependence, unspecified, uncomplicated 10/04/2020 10:47 [facility] TYPE: Emergency COMPLAINT: - ABD PAIN INPATIENT VISIT TRACKING (12 MO.) 10/04/2020 14:36 [facility] TYPE: Critical Care COMPLAINT: - CHOLANGITIS DIAGNOSES: - Contact with and (suspected) exposure to other viral communicable diseases - Other penitentiary (current) drug therapy - Benign prostatic hyperplasia without lower urinary tract symptoms - Unspecified jaundice - Other disorders of phosphorus metabolism - residential (current) use of anticoagulants - Severe sepsis [...] embolism - Hypomagnesemia - Sepsis, unspecified organism [email or web address]
--- NOTE | 2021-03-04 17:28 | NUR ---
86 YEAR OLD MALE PATIENT ADMITTED TO CCU FROM ER VIA STRETCHER UNDER DR. HUTCHISON WITH DX OF LOWER GIB. PATIENT HAS HAS A TOTAL OF 4 BLOODY [id number] TODAY. STATE HE HASN'T BEEN FEELING WELL FOR THE PAST COUPLE OF DAYS. SKIN IS WARM AND DRY TO TOUCH. IS COOPERATIVE, ALERT ORIENTED X 3. HAD GALLBLADDER SURGERY APPROX 5 MONTHS AGO. IVF INFUSING. ADMISSION PROCESS STARTED.
--- NOTE | 2021-03-04 18:00 | NUR ---
CURRENTLY RECIEVING LR BOLUS 1 LITER THAT WAS JUST HUNG IN CCU. PATIENT RECIEVED 1500 CC IVF THUS FAR. UP TO BS TO EXPELL 500 ML OF ANKITA RED BLOOD. C/O DIZZINESS WITH MOVEMENT. BP-120/65. HR PRIOR TO TRANSFER TO BSC 55 UPT TP 80 WITH TRANSFER. BACK TO BED W/O INCIDENT. DR. HUTCHISON NOTIFIED OF BLOOD OUTPUT. LABS DRAWN NOW.
--- NOTE | 2021-03-04 18:34 | NUR ---
CBC COLLECTED NOW AND SENT TO LAB. ABLE TO DRAW THIS FROM PATIENT'S LEFT AC IV SITE W/O DIFFICULTY. TALKED WITH DR. HUTCHISON ON THE PHONE AND PATIENT IS GOING TO BE GIVEN K-CENTRA.
--- NOTE | 2021-03-04 19:20 | NUR ---
DR. HENDRICKS IN ROOM TO SEE PATIENT AT THIS TIME. PT RECEIVING IV K-CENTRA. TXA HAS ALSO FINISHED. 2ND LITER BOLUS FINISHED. PLAN TO HAVE LOWER SCOPE TOMORROW.
--- NOTE | 2021-03-04 19:44 | NUR ---
THIS RN IN TO ASSESS PT. ZECHARIAH TOLEDO AND TRAVIS IN ROOM WITH PT. PT HAD JUST FINISHED USING [facility] TO HAVE A BM. PT HAD A BM THAT WAS 75ML OF LIQUID ANKITA RED BLOOD. KCENTRA COMPLETED AND 50ML OF NORMAL SALINE NOW INFUSING INTO LINE. PT IS LAYING IN BED ALERT AND ORIENTED AND DENIES ANY PAIN, LIGHTHEADEDNESS, OR DIZZYNESS. PT ASSESSED AT THIS TIME WELL AND VITALS TAKEN. D5LR STARTED AFTER 50ML OF NORMAL SALINE INFUSION WAS COMPLETED. PT NOW LAYING IN BED RESTING AND REPORTS NO FURTHER NEEDS. WILL CONTINUE PLAN OF CARE. CALL LIGHT IN REACH, BED IN LOWEST POSITION.
--- NOTE | 2021-03-04 20:20 | NUR ---
THIS RN IN TO ADMINISTER SCHEDULED MEDICATION AND TAKE ORTHOSTATIC BP'S. MEDICATION ADMINISTERED (SEE MAR). ORTHOSTATIC BP EXPLAINED TO PT AND PT TOLD TO INFORM THIS RN IF HE FELT TO DIZZY/LIGHTHEADED OR WEAK WHILE DOING THEM. PT STATED HE COULD AND WAS ASSISTED UP. PT HR INCREASED FROM THE 60'S TO THE 90'S WHILE STANDING. THE PT DENIED ANY SYMPTOMS WHILE STANDING. HOWEVER AFTER 15-20 SECONDS THE PT BEGAN TO STUMBLE BACKWARDS AND HAD A BLANK STARE. THIS RN HELD THE PT AND GUIDED HIM SLOWLY BACK DOWN TO SIT ON THE BED. PT ASKED HOW HE FELT TO WHICH HE STATED "A LITTLE WEAK". PT ASKED IF HE FELT LIGHTHEADED OR DIZZY AND PT DENIED THIS. PT WAS ALERT AND ORIENTED AT THIS TIME. AFTER A FEW MINUTES THE PT STATED HE NEEDED TO HAVE A BM. THE BSC WAS PLACED BY THE BED AND THIS RN AND WOODY MG ASSISTED THE PT TO THE BEDSIDE COMMODE. DR. HUTCHISON CALLED DURING THIS TIME ABOUT THE PT'S ORTHOSTATIC BP WHILE WOODY MG WAS WITH THE PT. DR. HUTCHISON STATED TO UPDATED HIM ONCE THE PT FINISHED HIS BM. THE PT WAS ABLE TO HAVE A BM AND VOID. THE PT'S BM WAS 575ML OF ANKITA RED BLOOD AND 150ML OF URINE. PT HELPED BACK INTO BED AT THIS TIME. PT DENIED ANY LIGHTHEADEDNESS OR DIZZYNESS WHILE STANDING BACK UP OR SITTING ON THE BSC. PT NOW BACK IN BED, IVF INFUSING ORDERED. CALL LIGHT IN REACH, BED IN LOWEST POSITION, THIS RN WILL UPDATE DR. HUTCHISON AND CONTINUE PLAN OF CARE.
--- NOTE | 2021-03-04 20:25 | NUR ---
DR. HUTCHISON CALLED AND UPDATED ON PTS ORTHOSTATIC BP, ANKITA RED BLOODY STOOLS AND URINE OUTPUT. NEW ORDERS GIVEN TO TRANSFUSE 2 UNITS OF CROSSMATCHED PRBCS, HAVE TWO ADDITIONAL UNITS CROSSMATCHED BY THE LAB, BEGIN A 500ML BOLUS OF LR OVER 1 HR, AND TO DRAW A CBC AFTER UNITS ARE TRANSFUSED. WILL CONTINUE PLAN OF CARE.
--- NOTE | 2021-03-04 20:30 | NUR ---
LAB CALLED AT THIS TIME TO INFORM THEM THAT THE PT REQUIRES 2 UNITS PRBCS AND AN ADDITIONAL 2 UNITS CROSSMATCHED ORDERED BY DR. HUTCHISON. WILL CONTINUE PLAN OF CARE.
--- NOTE | 2021-03-04 20:50 | NUR ---
THIS RN IN TO START 500 ML BOLUS OF LR OVER 1 HR. PT LAYING IN BED AWAKE AND ALERT. LR BOLUS STARTED, D5LR ALSO INFUSING AT ORDERED RATE. PT REPORTS NO PAIN, LIGHTHEADEDNESS, OR SOB AT THIS TIME WHEN ASKED. PT REPORTS NO FURTHER NEEDS WHEN ASKED, WILL CONTINUE PLAN OF CARE. CALL LIGHT IN REACH, BED IN LOWEST POSITION.
--- NOTE | 2021-03-04 21:19 | NUR ---
THIS RN IN TO ADMINISTER PRBC'S. PT LAYING IN BED ALERT AND ORIENTED. PT IDENTIFICATION COMPLETED WITH ZECHARIAH HARPER. PT EDUCATED ON SIGNS AND SYMPTOMS TO MONITOR FOR TRANSFUSION REACTIONS. PRBCS STARTED AT 2115 AND ARE NO INFUSING. 500ML BOLUS OF LR ALSO STILL INFUSING AT THIS TIME. PT REPORTS NO PAIN AT THIS TIME WHEN ASKED AND IS LAYING IN BED AWAKE AND RESTING. PT REPORTS NO FURTHER NEEDS AT THIS TIME WHEN ASKED. WOODY MG IN TO BRING PT A WARM BLANKET AND PLACE OVER PT. WILL CONTINUE PLAN OF CARE AND REMAIN WITH PT AT THIS TIME. CALL LIGHT IN REACH, BED IN LOWEST POSITION.
--- NOTE | 2021-03-04 21:35 | NUR ---
THIS RN IN PT'S ROOM. PT LAYING IN BED RESTING AND AWAKE. PRBC'S INFUSING. PT REPORTS NO SOB, PAIN, OR SYMPTOMS AT THIS TIME. LR BOLUS COMPLETED AND PT NOW BACK ON MAINTENANCE D5LR AT ORDERED RATE ON A SEPERATE IV SITE. PT REPORTS NO FURTHER NEEDS AT THIS TIME AND STATES HE WILL TRY TO GO TO SLEEP. CALL LIGHT ON PT'S BED WITHIN REACH, BED IN LOWEST POSITION, PRBCS INFUSING, WILL CONTINUE PLAN OF CARE.
--- NOTE | 2021-03-04 22:51 | CONS ---
[facility] [address], [place] [address] Signed DATE OF CONSULTATION: 03/04/2021 TIME: 7:30 p.m. REQUESTING PHYSICIAN: Dr. Hutchison. PROBLEM: Hematochezia. HISTORY OF PRESENT ILLNESS: This 86-year-old white man was admitted to the emergency room with hematochezia including bright red blood. This was earlier in the day. The patient is on apixaban 2.5 mg b.i.d. 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 He did undergo colonoscopy three years ago showing no sign of abnormality. He is known to me from the past having undergone inguinal hernia repair. A year ago or so, he underwent laparoscopic cholecystectomy by Dr. Torres Faustin; apparently a common duct stone was identified, not removed and followup for removal of stone not undertaken. He has no symptoms currently of biliary disease. The patient additionally takes Aleve 3 times a week for various pains. While evaluated, he was noted to have postural with a systolic blood pressure of about 60. He was admitted to the intensive care unit room 126 for further management. Given his coagulopathy, reversal agents have been initiated and blood has been typed and crossed. He has had at least one episode of significant hematochezia since his time in the intensive care unit. He is currently feeling well without abdominal pain and has a blood pressure systolic of 135. Other medical issues include essential hypertension, prostatic hypertrophy, gastroesophageal reflux and hyperlipidemia. MEDICATIONS: At home include: 1. Hydrochlorothiazide. 2. Omeprazole. 3. Simvastatin. 4. Proscar. 5. . 6. Apixaban as described. REVIEW OF SYSTEMS: Electronically Signed By: KRISTAL HENDRICKS MD 03/04/21 2456 PATIENT NAME: FRANK VÁZQUEZ CONSULTATION DATE OF : 31 REPORT #: [id number] PHYSICIAN: KRISTAL HENDRICKS MD PCP: NO PRIMARY CARE PHYSICIAN REPORT IS CONFIDENTIAL AND NOT TO BE RELEASED WITHOUT AUTHORIZATION [facility] [address], [place] [address] Signed He denies any shortness of breath or chest pain. He has no dysphagia. No hematemesis. Blood per rectum has been painless. He denies any intraabdominal pain at this time. PHYSICAL EXAMINATION: GENERAL: This is a pleasant white man who does not look to be in any distress at all at the moment. VITAL SIGNS: His blood pressure is 134 systolic, pulse is 77, BMI is 25.7. HEENT: Trachea is midline. There is no jugular venous distention. CHEST: Shows normal respiratory excursion. He has no tachypnea. ABDOMEN: Flat and soft, easily palpated. There is no mass or tenderness. No ascites. EXTREMITIES: Show no clubbing, cyanosis, or edema. LABORATORY STUDIES: Showed a creatinine of 1.53. Liver enzymes normal. White count 7.7, hematocrit 43.6 initially, now 33.4. ASSESSMENT: It is highly probable this represents a diverticular bleed despite the findings (or lack thereof) on colonoscopy three years ago. Other etiologies of significant rectal bleeding of course can include neoplasm, colitis, ischemic colitis in particular, and other abnormalities. He has had no hematemesis, but there is some chance of course of the upper gastrointestinal source as the etiology of his bleeding. I have conferred with Dr. Hutchison who has initiated pantoprazole intravenously administered and Kcentra. A MiraLAX bowel prep has been initiated already as well. I discussed with him an appropriate indication in this situation for colonoscopy after a reasonable bowel prep. We will plan to do this tomorrow. If things should worsen in the evening, it could be done sooner. However, the advantage of a bowel prep is significant and worth delay in general terms as long as the patient is clinically stable and not requiring more urgent intervention. He understands the risk of the procedure and wishes to proceed as we have described. MD RENETTA Carmichael/MODL /[id number] cc: Samuel Hutchison MD Electronically Signed By: KRISTAL HENDRICKS MD 03/04/21 2251 PATIENT NAME: FRANK VÁZQUEZ CONSULTATION DATE OF : 31 REPORT #: [id number] PHYSICIAN: KRISTAL HENDRICKS MD PCP: NO PRIMARY CARE PHYSICIAN REPORT IS CONFIDENTIAL AND NOT TO BE RELEASED WITHOUT AUTHORIZATION [facility] [address], [place] [address] Signed Copies: SAMUEL HUTCHISON MD ~ Electronically Signed By: KRISTAL HENDRICKS MD 03/04/21 2251 PATIENT NAME: FRANK VÁZQUEZ CONSULTATION DATE OF : 31 REPORT #: [id number] PHYSICIAN: KRISTAL HENDRICKS MD PCP: NO PRIMARY CARE PHYSICIAN REPORT IS CONFIDENTIAL AND NOT TO BE RELEASED WITHOUT AUTHORIZATION
--- NOTE | 2021-03-04 23:00 | NUR ---
THIS RN IN TO CHECK ON PT. PT LAYING IN BED SLEEPING BUT AWOKE EASILY. FIRST UNIT OF BLOOD COMPLETED AT 2255. VITALS TAKEN, PT ASSESSED, PT REPORTS NO NEW SIGNS OR SYMPTOMS. PT UP TO SIDE OF THE BED TO VOID AT THIS TIME USING URINAL. HR NOTED TO INCREASE FROM THE 60-70 TO 90'S. PT DENIES LIGHTHEADEDNESS OR DIZZYNESS AND STATES HE FEELS BETTER THAN BEFORE. PT NOW BACK IN BED RESTING. PT REPORTS NO FURTHER NEEDS AT THIS TIME, CALL LIGHT IN REACH, BED IN LOWEST POSITION, WILL CONTINUE PLAN OF CARE.
--- NOTE | 2021-03-04 23:33 | NUR ---
THIS RN IN TO HANG SECOND UNIT OF PRBC'S. PT LAYING IN BED AWAKE AND RESTING. SECOND UNIT STARTED AT 2315. VITALS ASSESSED AT 2330, PT REPORTS NO PAIN, LIGHTHEADEDNESS OR DIZZYNESS AFTER FIRST 15 MINUTES. BLOOD NOW INFUSING, PT REPORTS. PT REPORTS NO FURTHER NEEDS AT THIS TIME AND IS NOW LAYING IN BED RESTING. SECOND UNIT OF PRBCS INFUSING, D5LR INFUSING INTO ANOTHER IV SITE AT ORDERED RATE, WILL CONTINUE PLAN OF CARE. CALL LIGHT IN REACH, BED IN LOWEST POSITION.
--- NOTE | 2021-03-05 00:05 | NUR ---
THIS RN IN TO CHECK ON PT. PT SLEEPING BUT AWOKE EASILY. PT STATED HE NEEDED TO HAVE A BM. PT OFFERRED THE BEDPAN BUT PT STATED HE WANTED TO USE THE BSC. PT SAT UP ON THE SIDE OF THE BED AND STAYED THEIR FOR A FEW MINUTES. PT THEN WAS ABLE TO STAND ON HIS OWN AND PIVOT/TURN TO THE BEDSIDE COMMODE. PT HR NOTED TO GO UP TO THE 80-90'S AT THIS TIME. PT ABLE TO HAVE A BM AND USE THE URINAL TO VOID. BM WAS LIQUID AND CONSISTED OF MOSTLY ANKITA RED BLOOD 200ML. PT DENIED ANY DIZZYNESS OR LIGHTHEADEDNESS WHILE SITTING ON THE BSC. PT ASSISTED WITH PERICARE AND WAS THEN ABLE TO STAND AND PIVOT BACK ONTO THE BED. PT STATED THAT HE FELT BETTER THAN BEFORE WHEN GETTING UP. PT NOW LAYING BACK IN BED. PT DENIES PAIN AT THIS TIME WHEN ASKED. SECOND UNIT OF PRBC'S INFUSING, IVF INFUSING, SCD'S IN PLACE. CALL LIGHT ON BED WITHIN REACH, BED IN LOWEST POSITION, WILL CONTINUE PLAN OF CARE.
--- NOTE | 2021-03-05 00:22 | NUR ---
DR. HUTCHISON UPDATED ON PT STATUS VIA PHONE. NEW ORDERS GIVEN TO DRAW A CBC 45 MINUTES AFTER THE SECOND UNIT OF PRBC'S HAVE TRANSFUSED. WILL CONTINUE PLAN OF CARE.
--- NOTE | 2021-03-05 01:00 | NUR ---
SECOND UNIT OF BLOOD COMPLETE AT 0053. PT LAYING IN BED SLEEPING AND AWOKE. PT DENIES ANY PAIN, SOB, OR NEW SYMPTOMS. PT IV SALINE LOCKED. D5LR INFUSING AT ORDERED RATE. PT REPORTS NO FURTHER NEEDS AT THIS TIME, AND RETURNED BACK TO SLEEP. CALL LIGHT ON BED WITHIN REACH, BED IN LOWEST POSITION. WILL CONTINUE PLAN OF CARE.
--- NOTE | 2021-03-05 01:54 | NUR ---
CBC DRAWN FROM LEFT AC IV AND SENT TO LAB. IV FLUSHED AND SALINE LOCKED. PT ALERT AND ORIENTED AT THIS TIME LAYING IN BED. PT STATED HE NEEDED TO GET UP TO THE BSC AGAIN. PT ABLE TO GET UP ON HIS OWN, PIVOT TO BSC. PT VOIDED INTO URINAL AND HAD A BM CONSISTING OF RED BLOOD 300ML. PT HR INC FROM 60'S TO 70'S DURING THIS PROCESS AND PT DENIED DIZZYNESS OR LIGHTHEADEDNESS. PT ABLE TO GET BACK INTO BED WITHOUT DIFFICULTY. PT BP WERE READING IN THE LOW 80'S/90'S SYSTOLIC, MANUAL BP OBTAINED OF 92/50. CUFF REPOSITIONED AT THIS TIME AND BP WAS HIGHER AT 96/50 (65). PT REPORTS NO PAIN, LIGHTHEADEDNESS OR DIZZYNESS AND IS LAYING IN BED ON ROOM AIR WITH D5LR INFUSING AT ORDERED RATE. WILL CONTINUE PLAN OF CARE.
--- NOTE | 2021-03-05 02:13 | NUR ---
DR. HUTCHISON CALLED VIA PHONE AND GIVEN AN UPDATE ON THE PT AND THE PT'S CBC RESULTS. NO NEW ORDERS GIVEN AT THIS TIME, WILL CONTINUE PLAN OF CARE.
--- NOTE | 2021-03-05 03:14 | NUR ---
PT SLEEPING AT THIS TIME, RESPIRATIONS NOTED AND ARE EVEN AND UNLABORED. PT IN NO APPARENT DISTRESS AT THIS TIME AND WAS LEFT UNDISTURBED, WILL CONTINUE PLAN OF CARE. IVF INFUSING, CALL LIGHT ON BED IN REACH, BED IN LOWEST POSITION.
--- NOTE | 2021-03-05 04:29 | NUR ---
PT LAYING IN BED SLEEPING AT THIS TIME. RESPIRATIONS EVEN AND UNLABORED. PT IN NO APPARENT DISTRESS AT THIS TIME AND WAS LEFT UNDISTURBED, WILL CONTINUE PLAN OF CARE. CALL LIGHT IN REACH, BED IN LOWEST POSITION, IVF INFUSING ORDERED.
--- NOTE | 2021-03-05 05:09 | NUR ---
THIS RN IN TO ASSESS PT AND DRAW LABS. PT LAYING IN BED AWAKE AND STATED THAT HE NEEDED TO VOID. PT SAT AT BEDSIDE AND VOIDED INTO URINAL. PT NOW LAYING IN BED, LABS DRAWN AT THIS TIME AND SENT, ASSESSMENT COMPLETED. PULSES STRONG, CAPILLARY REFILL BRISK. PT DENIES NUMBESS OR TINGLING. BOWEL TONES HYPERACTIVE, ABDOMEN SOFT, PT REPORTS NO PAIN WHEN PALPATING. LUNGS ARE CLEAR. PT ALERT AND ORIENTED X3. PT GIVEN A SMALL MOUTH SWAB TO MOISTEN MOUTH AT THIS TIME. PT DENIES ANY PAIN WHEN ASKED. PT REPORTS NO FURTHER NEEDS AT THIS TIME, WILL CONTINUE PLAN OF CARE. CALL LIGHT IN REACH, BED IN LOWEST POSITION, D5LR INFUSING, SCDS IN PLACE AND ON.
--- NOTE | 2021-03-05 06:31 | NUR ---
THIS RN IN TO INFORM PT THE TIME OF THE SCHEDULED COLONOSCOPY. PT LAYING IN BED ALERT AND ORIENTED AT THIS TIME. PT DENTURES REMOVED, HEARING AIDS REMOVED, AND GLASSES REMOVED AT THIS TIME. PT STATED HE WANTED TO TRY TO VOID AND HAVE A BM PRIOR TO GOING IN. PT ABLE TO GET UP AND PIVOT TO BSC. PT HAD A BM THAT CONSISTED OF MOSTLY RED BLOOD 150ML AND VOIDED INTO THE URINAL. HR NOTED TO RAISE FROM THE 60'S TO 90'S. PT DENIED LIGHTHEADEDNESS OR DIZZYNESS WHEN ASKED. PT NOW LAYING IN BED AND REPORTS NO FURTHER NEEDS. PT DENIES PAIN AT THIS TIME WHEN ASKED. D5LR INFUSING AT ORDERED RATE, SCD'S ON, LR ON STRAIGHT TUBING READY AT BEDSIDE. WILL CONTINUE PLAN OF CARE.
--- NOTE | 2021-03-05 06:42 | NUR ---
O.R RN IN TO TRANSFER PT FOR PROCEDURE AND CONTINUE PLAN OF CARE.
--- NOTE | 2021-03-05 09:31 | NUR ---
returned to room 126. laying on left side, sleeping. ivf patent. report recieved.
--- NOTE | 2021-03-05 09:56 | NUR ---
03/05/21 0956 Alma Philippe 0931 REPORT GIVEN TO CCU RN BY MARKETING DIRECTOR ASSISTED LIVING. HELPED CCU RN REPOSITION PT AND PLACE ON MONITOR.
--- NOTE | 2021-03-05 10:10 | NUR ---
up to bedside commode to expell dark liquid stool. DENEIS DIZZINES WITH MOVEMENT.
--- NOTE | 2021-03-05 13:00 | NUR ---
THIS RN IN TO SPEAK WITH PATIENT. PATIENT AWAKE LAYING IN BED. PATIENT STATES HE IS FEELING GOOD. CASE MANADEMENT ASSESSMENT COMPLETE, PLEASE SEE OTHER DOCUMENTATION. PATIENT STATES HE LIVES IN AN APARTMENT IN HIS SON [place]. THE PATIENT STATES THAT HIS SON DOES HELP HIM AROUND THE HOME. PATIENT IS ESTABLISHED WITH A PCP THROUGH THE [facility] AT THE [facility]. PATIENT STATES HE DOES NOT USE ANY DME EQUIPMENT AT HOME AND DOES NOT FEEL HE WILL NEED ANY UPON DISCHARGE. DENIES FINANCIAL NEEDS AT THIS TIME. I ADVISED WESLY THAT CASE MANAGEMENT WILL CONTINUE TO FOLLOW UP WITH HIM DURING HIS HOSPITAL STAY.
--- NOTE | 2021-03-05 14:08 | NUR ---
SLEEPING WITH HOB ELEVATED. NO DISTRESS NOTED.
[2021-03-05] MEDS ORDERED: ATENOLOL25 MG PO (17:22)
--- NOTE | 2021-03-05 17:23 | NUR ---
MED REC COMPLETE
--- NOTE | 2021-03-05 18:00 | NUR ---
TRANSFER ORDERS RECIEVED. MONITOR DC'D. SITTNIG UP IN BED TO TAKE FULL LIQ DINNER.
--- NOTE | 2021-03-05 19:00 | NUR ---
RECEIVED REPORT FROM ZECHARIAH ROBLES. pt TO BE MOVED TO MED/SURG 122 BY ZECHARIAH CARL.
--- NOTE | 2021-03-05 19:00 | NUR ---
REPORT TO MEDICAL FLOOR.
--- NOTE | 2021-03-05 19:15 | NUR ---
TO MEDICAL FLOOR VIA CHAIR. IVF PATENT. NO ACTIVE BLEEDING NOTED.
--- NOTE | 2021-03-05 20:44 | NUR ---
IN TO DO ASSESSMENT. pt SITTING IN CHAIR. DENIES FEELING LIGHTHEADED OR DIZZY. WHEN STANDING TO URINATE pt WAS VERY UNSTABLE, REQUIRED ASSISTANCE TO MAINTAIN BALANCE AND SAFELY SIT. VITALS DONE, BP WNL. pt URINATED SITTING IN THE CHAIR. ATTEMPTED TO STAND AGAIN WITH ASSISTANCE. MUCH MORE STABLE. ABLE TO SAFELY AMBULATE TO BED. SETTLED IN BED. ASSESSMENT DONE. CALL LIGHT WITHIN REACH. BED ALARM ON. pt VERBALIZED UNDERSTAND HE NEEDS TO CALL PRIOR TO GETTING UP.
--- NOTE | 2021-03-05 22:55 | NUR ---
BED ALARMING. pt SITTING ON THE SIDE OF THE BED TO URINATE. BACK TO BED. NO REQUESTS AT THIS TIME. CALL LIGHT WITHIN REACH. BED ALARM ON.
--- NOTE | 2021-03-06 01:00 | NUR ---
BED ALARMING. ROOM SERVICE RUNNER IN ROOM TO ASSIST pt TO TOILET AND BACK TO BED. BED ALARM ON. CALL LIGHT WITHIN REACH.
--- NOTE | 2021-03-06 03:00 | NUR ---
ROUNDED ON pt. RESTING IN BED WITH EYES CLOSED, RESPIRATIONS REGULAR AND UNLABORED. CALL LIGHT WITHIN REACH. BED ALARM ON.
--- NOTE | 2021-03-06 05:00 | NUR ---
BED ALARMING. pt SAT ON SIDE OF BED TO VOID. ASSESSMENT DONE. NO CHANGES. pt UP AMBULATED IN NUNES X1. SITTING IN CHAIR. CALL LIGHT WITHIN REACH.
--- NOTE | 2021-03-06 09:23 | NUR ---
PT SITTING IN THE CHAIR. PT WALKED TO THE BATHROOM WITH A STANDBY ASSIST. MORNING ASSESSMENT COMPLETED. PT LUNG SOUNDS WERE CLEAR. BOWEL TONES WERE NORMOACTIVE. PT IS FEELING GASSY BUT HAS NOT HAD A BM YET TODAY. PT IS ON ROOM AIR. IV IS SALINE LOCKED AND DRESSING WNL. MORNING MEDICATIONS PASSED. PT RECEIVED 40MG OF POTATSSIUM AND PROTONIX PO. PT HAD SCD ON AND IN PLACE. POSSIBLE DISCHARGE THIS AFTERNOON. PT HAD NO FURTHER REQUESTS AT THIS TIME.
--- NOTE | 2021-03-06 10:27 | NUR ---
PATIENT AWAKE IN BED, VITALS AND I&OS CHARTED. CALL LIGHT AND PERSONAL ITEMS IN CLOSE REACH. NO OTHER NEEDS AT THIS TIME
--- NOTE | 2021-03-06 13:47 | EKG ---
[facility] [address] [place] [address] Signed Sinus bradycardia with 1st degree AV block Right bundle branch block Left anterior fascicular block Bifascicular block Abnormal ECG When compared with ECG of 04-OCT-2020 11:08, KS interval has increased Vent. rate has decreased BY 60 BPM Borderline criteria for Lateral infarct are no longer present Confirmed by JULIO CESAR PALACIOS DO ([id number]) on 03/06/2021 1:47:14 PM Electronically Signed By: JULIO CESAR PALACIOS DO 03/06/21 1347 PATIENT NAME: FRANK VÁZQUEZ Electrocardiogram DATE OF : 31 PHYSICIAN: JULIO CESAR PALACIOS DO REPORT #: [id number] REPORT IS CONFIDENTIAL AND NOT TO BE RELEASED WITHOUT AUTHORIZATION
--- NOTE | 2021-03-06 13:47 | NUR ---
PATIENT UP IN CHAIR, VITALS AND I&OS CHARTED. PATIENT ANTICIPATING D/C THIS AFTERNOON. CALL LIGHT IN REACH, NO OTHER NEEDS AT THIS TIME
--- NOTE | 2021-03-06 14:25 | NUR ---
It has been my pleasure to have a visit with Mr. Rg Gutierrez today. Mr. Gutierrez is very pleasant, he is oriented to person place and time for me today. He states that he is going home today, and adds "I just went through the ropes with Ms Sorto (PT) and passed the test." He is quite pleasant to visit with, and he reports that his care has been "very good" while he has been here in the hospital.. Stating "I am very happy with my care." He denies any questions or concerns at this time.
--- NOTE | 2021-03-16 10:51 | OR ---
[facility] [address] [place], [place] [address] Signed DATE OF OPERATION: 03/05/2021 SURGEON: Kristal Hendricks MD PREOPERATIVE DIAGNOSES: 1. Persistent hematochezia. 2. Recent anticoagulation (Eliquis). POSTOPERATIVE DIAGNOSES: 1. Diverticulosis of colon. No evidence of active bleeding. 2. Upper endoscopy showing hiatal hernia. PROCEDURES: 1. Total colonoscopy to cecum. 2. Upper endoscopy. ANESTHESIA: Intravenous sedation propofol infusion; Yvonne Viera CRNA. INDICATION: This is an 86-year-old white man, who was admitted yesterday with significant lower GI bleeding with relatively bright blood per rectum. He was chronically anticoagulated with Eliquis. He takes Aleve on an episodic basis. His hematochezia was significant and persistent, but he has been monitored and found to be stable with no active bleeding at this time. A prep with MiraLAX had been initiated yesterday anticipating colonoscopy today. The risks of bleeding, infection, perforation, and so forth were reviewed with him. Also, he was consented for "other indicated procedures" as necessary. FINDINGS: There was old residual blood within the colon throughout its length. Complete colonoscopy was undertaken to the cecum. There were scattered diverticula throughout the colon most dominantly in the sigmoid. There was no evidence of active bleeding or fresh blood or clot. On that basis, upper endoscopy was additionally performed, which showed hiatal hernia but no lesion to account for bleeding in the esophagus, stomach, or duodenum. DESCRIPTION OF PROCEDURE: The patient was brought to the surgical endoscopy suite and placed in lateral decubitus position, given intravenous sedation with propofol infusional technique by the sales product manager. A digital rectal examination was normal. Electronically Signed By: KRISTAL HENDRICKS MD 03/16/21 1051 PATIENT NAME: FRANK VÁZQUEZ OPERATIVE REPORT DATE OF : 31 REPORT #: [id number] PHYSICIAN: KRISTAL HENDRICKS MD PCP: JONATAN GARRISON MD REPORT IS CONFIDENTIAL AND NOT TO BE RELEASED WITHOUT AUTHORIZATION [facility] [address] [place], [place] [address] Signed An Olympus video colonoscope was passed in the rectum and manipulated throughout the colon. Irrigation was required as there was residual thin blood. No evidence of clot, bright blood, or active bleeding. Ultimately, the scope was advanced to the cecum, though it took a bit of time considering irrigation requirements. The ileocecal valve was identified and normal. It could not be intubated despite attempts to do so. The scope was withdrawn from that point and careful inspection showed no sign of arteriovenous malformations, neoplasm, or ischemic change. Only diverticular changes scattered throughout and including the sigmoid. Retroflexed view was normal other than some internal hemorrhoidal change without sign of bleeding. The scope was removed. Consideration was made for upper endoscopy considering the paucity of findings on colonoscopy. On that basis, an Olympus video upper endoscope was passed in the hypopharynx. The vocal cords were normal. Scope was advanced to the esophagus, which was examined thoroughly as was the stomach and duodenum. The only finding was that of hiatal hernia. No sign of blood, recent blood, old blood, lesion, or anything to account for bleeding at all. The scope was removed and the patient was taken back to intensive care unit for further management. He tolerated procedure well with no hypotensive episodes or other issues. CONCLUSION DIAGNOSIS: GI bleeding, unknown etiology most dominant, likely source diverticulosis and without sign of active bleeding at this time. PLAN: We will review with Dr. Hutchison the plan going forward. If additional bleeding is noted, then a tagged red cell scan would be indicated. Kristal Hendricks MD /MODL /[id number] cc: Samuel Hutchison MD Copies: SAMUEL HUTCHISON MD Electronically Signed By: KRISTAL HENDRICKS MD 03/16/211050 PATIENT NAME: FRANK VÁZQUEZ OPERATIVE REPORT DATE OF : 31 REPORT #: [id number] PHYSICIAN: KRISTAL HENDRICKS MD PCP: JONATAN GARRISON MD REPORT IS CONFIDENTIAL AND NOT TO BE RELEASED WITHOUT AUTHORIZATION [facility] [address] [place], [place] [address] Signed ~ Electronically Signed By: KRISTAL HENDRICKS MD 03/16/211050 PATIENT NAME: KATHIEFRANK Levine KRISTAL OPERATIVE REPORT DATE OF : 31 REPORT #: [id number] PHYSICIAN: KRISTAL HENDRICKS MD PCP: JONATAN GARRISON MD REPORT IS CONFIDENTIAL AND NOT TO BE RELEASED WITHOUT AUTHORIZATION
== END 2021-03-06 15:35 | disposition home or self-care (01) ==
LOC: ED 15:32 → CCU 15:34 → MS 15:34 → ED 17:01 → CCU 17:01 → MS 03-05 19:15
PROVIDERS: Surgery; ADMIT Internal Medicine; ATTEND Internal Medicine
PROC: 0DJ08ZZ Inspection of Upper Intestinal Tract, Via Natural or Artificial Opening Endoscopic (ICD-10-PCS; principal; 2021-03-05 08:00)
PROC: 0DJD8ZZ Inspection of Lower Intestinal Tract, Via Natural or Artificial Opening Endoscopic (ICD-10-PCS; 2021-03-05 08:00)
DX: K57.31 Diverticulosis of large intestine without perforation or abscess with bleeding (principal); K44.9 Diaphragmatic hernia without obstruction or gangrene; K64.8 Other hemorrhoids; D62 Acute posthemorrhagic anemia; N17.9 Acute kidney failure, unspecified; I95.1 Orthostatic hypotension; D68.9 Coagulation defect, unspecified; I10 Essential (primary) hypertension; Z20.822 Contact with and (suspected) exposure to COVID-19; E78.00 Pure hypercholesterolemia, unspecified; K21.9 Gastro-esophageal reflux disease without esophagitis; N40.0 Benign prostatic hyperplasia without lower urinary tract symptoms; F17.200 Nicotine dependence, unspecified, uncomplicated; Z86.718 Personal history of other venous thrombosis and embolism; Z86.711 Personal history of pulmonary embolism; Z90.49 Acquired absence of other specified parts of digestive tract; Z79.1 Long term (current) use of non-steroidal anti-inflammatories (NSAID); Z79.01 Long term (current) use of anticoagulants; Z79.899 Other long term (current) drug therapy; Z88.8 Allergy status to other drugs, medicaments and biological substances
CPT/HCPCS: 36415; 36430; 80048; 80053; 85014; 85018; 85025; 85730; 86850; 86900; 86901; 86920; 93005; 93010; 96374; 96375; 96376; 97161; 99285-25; 99406; C9113; C9132; C9803; G0378; J2001; J2704; J7040; J7121; P9016; U0003

== ENCOUNTER 2021-03-07 08:03 | Emergency (ER) | payer OTHER ==
[~2021-03-07] VITALS: Ht 177.8 cm; Wt 81.2 kg
[~2021-03-07 08:03] MED LIST changes: +ATENOLOL25 MG PO
--- OUTSIDE RECORDS SUMMARY | 2021-03-07 08:06 | XMS ---
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 Care History Medical/Surgical 10/18/2020 [facility]\nbsp; PATIENT IS A -RECEIVES SERVICES THROUGH [place] [facility] [place]. [facility]\nbsp; Location: [address], [place] [address]- E.D. VISIT COUNT (12 MO.) [address] [place] [address] TOTAL 4 NOTE: Visits indicate total known visits. ED/UCC VISIT TRACKING (12 MO.) 03/07/2021 08:04 [facility] [place] TYPE: Emergency COMPLAINT: - RECTAL BLEEDING, UNBALANCED 03/04/2021 15:33 [facility] [place] TYPE: Emergency COMPLAINT: - GI BLEEDING 10/17/2020 05:07 [facility] [place] TYPE: Emergency COMPLAINT: - RT SHOULDER PAIN NON INJURY DIAGNOSES: - Allergy status to other drugs, medicaments and biological substances - Allergy status to other drugs, medicaments and biological substances - Essential (primary) hypertension - Other long term care social worker (current) drug therapy - Cervicalgia - Nicotine dependence, unspecified, uncomplicated 10/04/2020 10:47 [facility] [place] TYPE: Emergency COMPLAINT: - ABD PAIN INPATIENT VISIT TRACKING (12 MO.) 03/04/2021 15:34 [facility] [place] TYPE: Observation COMPLAINT: - GI BLEED 10/04/2020 14:36 [facility] [place] TYPE: Critical Care COMPLAINT: - CHOLANGITIS DIAGNOSES: - Contact with and (suspected) exposure to other viral communicable diseases - Other long term care social worker (current) drug therapy - Benign prostatic hyperplasia without lower urinary tract symptoms - Unspecified jaundice - Other disorders of phosphorus metabolism - MCFP (current) use of anticoagulants - Severe sepsis [...] embolism - Hypomagnesemia - Sepsis, unspecified organism [email or web address]
--- NOTE | 2021-03-08 11:39 | EKG ---
[facility] [address] [facility] [place] [address] Signed Sinus rhythm with 1st degree AV block Right bundle branch block Left anterior fascicular block Bifascicular block Abnormal ECG When compared with ECG of 05-MAR-2021 07:01, Inverted T waves have replaced nonspecific T wave abnormality in Inferior leads Confirmed by JULIO CESAR PALACIOS DO ([id number]) on 03/08/2021 11:39:17 AM Electronically Signed By: JULIO CESAR PALACIOS DO 03/08/21 1139 PATIENT NAME: FRANK VÁZQUEZ Electrocardiogram DATE OF : 31 PHYSICIAN: JULIO CESAR PALACIOS DO REPORT #: [id number] REPORT IS CONFIDENTIAL AND NOT TO BE RELEASED WITHOUT AUTHORIZATION
== END 2021-03-07 10:27 | disposition home or self-care (01) ==
LOC: ED 08:03
DX: K57.90 Diverticulosis of intestine, part unspecified, without perforation or abscess without bleeding (principal); K92.2 Gastrointestinal hemorrhage, unspecified; I10 Essential (primary) hypertension; F17.200 Nicotine dependence, unspecified, uncomplicated; Z88.8 Allergy status to other drugs, medicaments and biological substances; Z79.899 Other long term (current) drug therapy
CPT/HCPCS: 80053; 85025; 85610; 86850; 86900; 86901; 93005; 93010; 99285-25; J7040

== ENCOUNTER 2021-03-13 13:45 | Observation (INO) | payer OTHER ==
[~2021-03-13] VITALS: Ht 177.8 cm; Wt 81.6 kg
--- OUTSIDE RECORDS SUMMARY | 2021-03-13 13:50 | XMS ---
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 Care History Medical/Surgical 10/18/2020 [facility]\nbsp; PATIENT IS A -RECE[facility] [place]. [facility]\nbsp; Location: [address], [place] [address]- E.D. VISIT COUNT (12 MO.) [address] [place] [address] TOTAL 5 NOTE: Visits indicate total known visits. ED/UCC VISIT TRACKING (12 MO.) 03/13/2021 13:46 [facility] [place] TYPE: Emergency COMPLAINT: - RECTAL BLEEDING 03/07/2021 08:04 [facility] [place] TYPE: Emergency COMPLAINT: - UNBALANCED DIAGNOSES: - Dizziness and giddiness - Allergy status to other drugs, medicaments and biological substances - Gastrointestinal hemorrhage, unspecified - Nicotine dependence, unspecified, uncomplicated - Other exterminator helper termite (current) drug therapy - Diverticulosis of intestine, part unspecified, without perforation or abscess without bleeding - Gastrointestinal hemorrhage, unspecified - Essential (primary) hypertension 03/04/2021 15:33 [facility] [place] TYPE: Emergency COMPLAINT: - GI BLEEDING 10/17/2020 05:07 [facility] [place] TYPE: Emergency COMPLAINT: - RT SHOULDER PAIN NON INJURY DIAGNOSES: - Allergy status to other drugs, medicaments and biological substances - Allergy status to other drugs, medicaments and biological substances - Essential (primary) hypertension - Other exterminator helper termite (current) drug therapy - Cervicalgia - Nicotine dependence, unspecified, uncomplicated 10/04/2020 10:47 [facility] [place] TYPE: Emergency COMPLAINT: - ABD PAIN INPATIENT VISIT TRACKING (12 MO.) 03/04/2021 15:34 [facility] [place] TYPE: Observation COMPLAINT: - GI BLEED DIAGNOSES: - Other hemorrhoids - Acute kidney failure, unspecified - Diaphragmatic hernia without obstruction or gangrene - Nicotine dependence, unspecified, uncomplicated - skilled nursing (current) use of non-steroidal anti-inflammatories (NSAID) - Personal history of other venous thrombosis and embolism - Orthostatic hypotension - Other exterminator helper termite (current) drug therapy - Personal history of pulmonary embolism - Pure hypercholesterolemia, unspecified - Coagulation defect, unspecified - Acute posthemorrhagic anemia - Melena - Benign prostatic hyperplasia without lower urinary tract symptoms - Allergy status to other drugs, medicaments and biological substances - Acquired absence of other specified parts of digestive tract - Gastro-esophageal reflux disease without esophagitis - Essential (primary) hypertension - Diverticulosis of large intestine without perforation or abscess with bleeding - skilled nursing (current) use of anticoagulants 10/04/2020 14:36 [facility] [place] TYPE: Critical Care COMPLAINT: - CHOLANGITIS DIAGNOSES: - Contact with and (suspected) exposure to other viral communicable diseases - Other exterminator helper termite (current) drug therapy - Benign prostatic hyperplasia without lower urinary tract symptoms - Unspecified jaundice - Other disorders of phosphorus metabolism - skilled nursing (current) use of anticoagulants - Severe sepsis [...] embolism - Hypomagnesemia - Sepsis, unspecified organism [email or web address]
--- NOTE | 2021-03-13 20:45 | NUR ---
PT HERE TO THE FLOOR, SBA PIVOT TO BED, VITALS TAKEN, WARM BLANKET PROVIDED, FURTHER NEEDS
--- NOTE | 2021-03-13 22:30 | NUR ---
cOOP WITH ASSESSMENT, NO C/O PAIN, IVF INFUSION, MED TEACHING RR/T PROTONIX AND IVF WITH POTASSIUM EXPLAINED, STATED UNDERSTANDING, VOIDIED QS YELLOW URINE. NO EMESIS, NPO, DID OWN MOUTH CARE. CALL LIGHT AT BEDSIDE
--- NOTE | 2021-03-13 23:21 | NUR ---
tele#[address], SR, no c/o cp, awakes easily, no c/o distress, call light at bedside
--- NOTE | 2021-03-14 00:35 | NUR ---
RESTING, ROOM AIR, EYES CLOSED, NO RESP DISTRESS
--- NOTE | 2021-03-14 03:00 | NUR ---
voided, using urinal, back to bed, no bm this shift. ivf infusing, tele#[address] npo.
--- NOTE | 2021-03-14 04:15 | NUR ---
PT UP TO VOID AT THIS TIME, VITALS DONE, NO FURTHER NEEDS
--- NOTE | 2021-03-14 06:04 | NUR ---
Pt has slept most of this shift. On room air, no bm this shift. no c/o pain. IVF infusing w/o problems, tele#9 SR, no c/o CP, no SOB. NPO. pleasant and coop. uses call light, voiding QS.
--- NOTE | 2021-03-14 06:29 | NUR ---
DR FUCHS IN ROOM EXAMINING PT
--- NOTE | 2021-03-14 07:03 | NUR ---
UP TO EDGE OF BED, VOIDED, BACK TO BED, TOLERATED WELL
--- NOTE | 2021-03-14 07:09 | NUR ---
REPORT FROM Natasha RUCKER RN. PATIENT AWAKE IN BED, STATES HE WOULD LIKE BREAKFAST. INFORMED HE HAS AN ORDER FOR NOTHING BY MOUTH, VERBALIZES UNDERSTANDING. DENIES OTHER NEEDS AT THIS TIME. CALL LIGHT IN REACH, BED RAILS UP X2, SCD'S ON AND WORKING.
--- NOTE | 2021-03-14 08:49 | NUR ---
Assist to stand at side of bed to void. Continent of urine. Returns to bed, SCD's replaced and turned on. Assessment completed. Denies pain at this time. AM medications administered, takes without difficulty. Educated on NPO status, verbalizes understanding. Radiology plans to be in for study around 1000 this AM. Patient informed. Call light in reach, bed rails up X2. Instructed to call with assist.
--- NOTE | 2021-03-14 10:54 | NUR ---
MED REC COMPLETE
--- NOTE | 2021-03-14 11:04 | NUR ---
IV converted to SL for radiology at this time. Continent of urine as well. Denies other needs. Call light in reach, bed rails up X2.
--- NOTE | 2021-03-14 13:52 | NUR ---
PATIENT LYING IN BED, VISITING. DENIES PAIN OR DISCOMFORT. DENIES FEELING HUNGRY. ASSESSMENT COMPLETED. IV FLUIDS CONTINUE INFUSING. CALL LIGHT IN REACH, BED RAILS UP X2. DENIES OTHER NEEDS AT THIS TIME.
--- NOTE | 2021-03-14 15:50 | NUR ---
Resting in bed with eyes closed, respirations even and unlabored. Call light in reach. Allowed to rest. Bed rails up X2.
--- NOTE | 2021-03-14 16:57 | NUR ---
Spoke with Dr. Faustin regarding patient. Informed of BLood loss study findings. Telephone orders read back Dr. Faustin/Hector Reyes, RN for regular diet and repeat CBC in AM.
--- NOTE | 2021-03-14 17:35 | NUR ---
In bed most of today. No bowel movement today. Blood loss study complete, negative results. Diet changed to regular diet for supper. Remains without abdominal pain. IV fluids infusing. Standby assist to independent. Continent of urine.
--- NOTE | 2021-03-14 19:42 | NUR ---
Up to br, wants to take a shower, set up done. will call when done. walks w/o problems. sl and area covered, scds off at this time
--- NOTE | 2021-03-14 19:57 | NUR ---
CALL ANSWERED. PATIENT NEEDED GOWN TIED AND ASSISTANCE WITH ORAL CARE/DENTURES. PATIENT SHOWERED SLEF. THIS ACTIVITY THERAPY TEACHER REMOVED IV PROTECTION (ZIPLOCK BAG WITH TAPE). BM NOTED AND RN NOTIFIED.
--- NOTE | 2021-03-14 22:11 | NUR ---
PT'S TELE BATERY WAS LOW, REPLACED. PT DENIES FURTHER NEEDS, CALL LIGHT IS CLOSE.
--- NOTE | 2021-03-14 22:55 | NUR ---
resting, eys closed, on room air, no distress, ivf infusing, tele#[address], fluids and call light at bedside
--- NOTE | 2021-03-15 00:39 | NUR ---
RESTING, NO DISTRESS, ONROOM AIR, IVF INFUSING, TELE#[address] READINGS, CALL LIGHT AT BEDSIDE
--- NOTE | 2021-03-15 03:59 | NUR ---
resting, eyes closed, no distress, ivf infusing, tolerating fluids, call light at hands reach
--- NOTE | 2021-03-15 05:24 | NUR ---
Pt has slept all this shift. On room air, IVF infusing w/o problems, no c/o pain, has had 2 formed black colored stooks, pink-red coloring noted on wiping toilet paper, no emesis noted. tolerating reg diet
--- NOTE | 2021-03-15 06:33 | CONS ---
[facility] [address] [place], [place] [address] Signed DATE OF CONSULTATION: 03/14/2021 CHIEF COMPLAINT: Rectal bleeding. HISTORY OF PRESENT ILLNESS: Frank is an 86-year-old gentleman, well known to myself and our community. 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 He still stays in an apartment in the shop to be close to his son. He was seen in the hospital about 10 days ago on Eliquis and Aleve with rectal bleeding. He had upper and lower endoscopy with Dr. Herrera and was found to have diverticulosis of the colon, but no active bleeding. He also had a hiatal hernia. He went home off Eliquis and Aleve. He had another bowel movement yesterday and saw some blood in the toilet. He wanted to come in the emergency room for evaluation. Apparently in the emergency room, he had some blood around the anus. He was admitted to the Internal Medicine service yesterday evening. I was in the operating room he has been hemodynamically stable overnight. No further bloody bowel movements. His hemoglobin was checked and it runs right around 9 and that has been stable. PAST MEDICAL HISTORY: Hypertension, hypercholesterolemia, hematuria, gastroesophageal reflux disease, hiatal hernia, dermatitis, coronary artery disease, peripheral arterial disease, diverticulosis, benign prostatic hyperplasia, DVT and PE. PAST SURGICAL HISTORY: Includes his TURP, hernia repairs x2, laparoscopic cholecystectomy, colonoscopy around [address] Herrera, upper and lower endoscopy with Dr. Herrera 10-11 days ago with hiatal hernia and diverticulosis. SOCIAL HISTORY: He does not smoke anymore, but he drinks once in a while. He lives in an apartment at the auto body shop next to his son, Thiago at [phone]. Dr. Jonatan Bhakta is his primary care provider with [facility] in [place], [place]. 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 FAMILY HISTORY: None. REVIEW OF SYSTEMS: He had 10 systems reviewed and I can see he is not the best historian. Most of his history was taken from the electronic health records. ALLERGIES: Electronically Signed By: ETHAN FUCHS MD 03/15/21 0633 PATIENT NAME: FRANK VÁZQUEZ CONSULTATION DATE OF : 31 REPORT #: [id number] PHYSICIAN: ETHAN FUCHS MD PCP: JONATAN BHAKTA MD REPORT IS CONFIDENTIAL AND NOT TO BE RELEASED WITHOUT AUTHORIZATION [facility] [address] [place] [id number] Signed He says a beta-cate decreased his heart rate. MEDICATIONS: , omeprazole, simvastatin, finasteride and atenolol. PHYSICAL EXAMINATION: VITAL SIGNS: Blood pressure 158/83, heart rate 61, respiratory rate 18, temperature is 97.6, 100% on room air. He is 5 feet 10 inches, 81 kg. GENERAL: Frank is an 86-year-old gentleman lying supine in semi-recumbent in his hospital bed. He is alert, awake and interactive. He is a moderate historian at best. He does not appear pale. LUNGS: Clear to auscultation bilaterally. HEART: Regular rate and rhythm without murmurs. ABDOMEN: Soft, flat, nontender. RECTAL: Not repeated currently. LABORATORY DATA: White blood count is 5.4, hemoglobin 9.1, mean cell volume 90, platelets are 191. BUN 22, creatinine 1.10. INR 2.0, PTT is 33. His liver function tests are negative, albumin 3.6. RADIOGRAPHIC STUDIES: Duplex scan of his legs does not show a blood clot. CT scan of abdomen and pelvis shows the diverticulosis with a very enlarged prostate gland. ASSESSMENT/PLAN: Frank is an 86-year-old gentleman who presents with some red blood with his bowel movement. It may all be diverticular. It could be hemorrhoidal. He just underwent upper and lower endoscopy with Dr. Herrera as above. I think on this occasion, we will check a tagged red blood cell scan hopefully today. He may or may not need rescoped tomorrow the next day. I reviewed all this with Frank and his nurse. He has expressed understanding and agrees to above plan. Ethan Fuchs MD ALB/MODL /[id number] Electronically Signed By: ETHAN FUCHS MD 03/15/21 0633 PATIENT NAME: FRANK VÁZQUEZ CONSULTATION DATE OF : 31 REPORT #: [id number] PHYSICIAN: ETHAN FUCHS MD PCP: JONATAN BHAKTA MD REPORT IS CONFIDENTIAL AND NOT TO BE RELEASED WITHOUT AUTHORIZATION [address] [address] Signed cc: MD Ethan Cruz MD Copies: JONATAN BHAKTA MD, ANDREW L MD ~ Electronically Signed By: ETHAN FUCHS MD 03/15/21 0633 PATIENT NAME: FRANK VÁZQUEZ CONSULTATION DATE OF : 31 REPORT #: [id number] PHYSICIAN: ETHAN FUCHS MD PCP: JONATAN BHAKTA MD REPORT IS CONFIDENTIAL AND NOT TO BE RELEASED WITHOUT AUTHORIZATION
--- NOTE | 2021-03-15 06:53 | NUR ---
npo as per new orders, dr branham in room
--- NOTE | 2021-03-15 08:28 | NUR ---
PATIENT SALINE LOCKED TO GO TO IMAGING FOR SBFT. PATIENT AMBULATED TO BATHROOM TO VOID BEFORE LEAVING.
--- NOTE | 2021-03-15 10:56 | NUR ---
PT CAME BACK TO FLOOR AT SOME POINT AFTER 1000. ASSESSMENT WAS WDL OVERALL. PT DENIED ANY PAIN AND N/V. NO ISSUES WERE NOTED WITH ASSESSMENT. ABD SOUNDS PRESENT, NON-TENDER AND SOFT. WILL CONTINUE TO MONITOR.
--- NOTE | 2021-03-15 11:42 | NUR ---
PT WALKED ONE LAP IN THE HALLWAY AND DID WELL WITH IT. PT BACK IN ROOM.
--- NOTE | 2021-03-15 11:47 | NUR ---
SPOKE WITH PATIENT IN ROOM. HE STATES HE WILL GO HOME AT DISCHARGE. HE LIVES ALONE ABOVE THE FAMILY BUSINESS. HE DOES HAVE STAIRS BUT STATES HE HAS NO PROBLEMS WITH THEM. HE STATES HE HAS BEEN UP IN ROOM AND FEELS MORE STEADY ON FEET TODAY. 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 HAS MANY FAMILY MEMBERS IN AREA. STATES HIS SON JOSE WILL DRIVE HIM HOME AND IF HE NEEDS ANYTHING THEY WILL HELP HIM. HE DENIES WORRIES ABOUT AFFORDING MEDS/FOOD/UTILITIES. HE IS NOT AWARE OF ANYTHING HE WOULD NEED TO RETURN HOME. NO BARRIERS AT THIS TIME KNOWN. SPOKE WITH STAFF NURSE TO MAKE SURE PATIENT IS AMBULATING IN HALLS BEFORE HE IS DISCHARGED. ALSO THAT IF HE IS NOT STEADY TO GET ORDER FOR PT JUDIT TO SEE IF HE NEEDS OUTPATIENT THERAPY.
== END 2021-03-15 13:20 | disposition home or self-care (01) ==
LOC: ED 13:45 → MS 13:47
PROVIDERS: ADMIT Internal Medicine; ATTEND Internal Medicine
DX: K62.5 Hemorrhage of anus and rectum (principal); D62 Acute posthemorrhagic anemia; I10 Essential (primary) hypertension; I25.10 Atherosclerotic heart disease of native coronary artery without angina pectoris; K21.9 Gastro-esophageal reflux disease without esophagitis; R60.0 Localized edema; E78.00 Pure hypercholesterolemia, unspecified; Z20.822 Contact with and (suspected) exposure to COVID-19; K57.30 Diverticulosis of large intestine without perforation or abscess without bleeding; K44.9 Diaphragmatic hernia without obstruction or gangrene; Z86.718 Personal history of other venous thrombosis and embolism; Z86.711 Personal history of pulmonary embolism; Z87.891 Personal history of nicotine dependence; Z88.8 Allergy status to other drugs, medicaments and biological substances
CPT/HCPCS: 36415; 74177; 74250; 78278; 80048; 80053; 85025; 85610; 85730; 86850; 86900; 86901; 93970; 96375; 96376; 99285-25; A9560; C9113; C9803; G0378; J3480; J7120; J7121; Q9967; U0003

== ENCOUNTER 2021-04-03 11:21 | Emergency (ER) | payer OTHER ==
[~2021-04-03] VITALS: Ht 177.8 cm; Wt 81.2 kg
--- OUTSIDE RECORDS SUMMARY | 2021-04-03 11:24 | XMS ---
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 Care History Medical/Surgical 10/18/2020 [facility] \T\[facility];\T\nbsp; PATIENT IS A -RECEIVES SERVICES THROUGH [place] [facility] [place]. [facility];\T\nbsp; Location: [address], [place] [address]- E.D. VISIT COUNT (12 MO.) [address] [place] [address] TOTAL 6 NOTE: Visits indicate total known visits. 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 - Diverticulosis of intestine, [...] substances - Essential (primary) hypertension - Other residential (current) drug therapy - Cervicalgia - Nicotine dependence, unspecified, uncomplicated 10/04/2020 10:47 [facility] [place] TYPE: Emergency COMPLAINT: - ABD PAIN INPATIENT VISIT TRACKING (12 MO.) 03/13/2021 13:47 [facility] [place] TYPE: Observation COMPLAINT: - GI BLEED DIAGNOSES: - Personal history of pulmonary embolism - Personal history of nicotine dependence - Personal history of other venous thrombosis and embolism - Diaphragmatic hernia without obstruction or gangrene - Allergy status to other drugs, medicaments and biological substances - Atherosclerotic heart disease of [place] coronary artery without angina pectoris - Essential (primary) hypertension - Acute posthemorrhagic anemia - Diverticulosis of large intestine without perforation or abscess without bleeding - Localized edema - Hemorrhage of anus and rectum - Gastro-esophageal reflux disease without esophagitis - Pure hypercholesterolemia, unspecified 03/04/2021 15:34 [facility] [place] TYPE: Observation COMPLAINT: - GI BLEED DIAGNOSES: - Other hemorrhoids - Acute kidney failure, unspecified - Diaphragmatic hernia without obstruction or gangrene - Nicotine dependence, unspecified, uncomplicated - [facility] (current) use of non-steroidal anti-inflammatories (NSAID) - Personal history of other venous thrombosis and embolism - Orthostatic hypotension - Other residential (current) drug therapy - Personal history of [...] without perforation or abscess with bleeding - 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
== END 2021-04-03 12:10 | disposition home or self-care (01) ==
LOC: ED 11:21
DX: S51.011A Laceration without foreign body of right elbow, initial encounter (principal); W22.8XXA Striking against or struck by other objects, initial encounter; I10 Essential (primary) hypertension; Z87.891 Personal history of nicotine dependence; Z88.8 Allergy status to other drugs, medicaments and biological substances; Z79.899 Other long term (current) drug therapy
CPT/HCPCS: 99282

== ENCOUNTER 2023-01-12 08:19 | Emergency (ER) | payer OTHER, MEDICARE ==
[~2023-01-12] VITALS: Ht 177.8 cm; Wt 78.8 kg
== END 2023-01-12 09:10 | disposition home or self-care (01) ==
LOC: ED 08:19
DX: M79.671 Pain in right foot (principal); M79.672 Pain in left foot; I10 Essential (primary) hypertension; E78.00 Pure hypercholesterolemia, unspecified; K21.9 Gastro-esophageal reflux disease without esophagitis; Z87.891 Personal history of nicotine dependence; Z88.8 Allergy status to other drugs, medicaments and biological substances; Z79.899 Other long term (current) drug therapy
CPT/HCPCS: 99283